=== PATIENT | male | born 1965 | race Caucasian/White ===

== ENCOUNTER 2016-10-13 10:04 | Day surgery (SDC) | payer BC ==
[2016-10-13 10:30] VITALS: BMI 33.5
[2016-10-13] MEDS ORDERED: CLINDAMYCIN 900 MG PREMIX IVPB 50 ML IVPB ONE ×2 (11:27→11:36)
--- NOTE | 2016-10-13 11:35 | PDOC ---
History of Present Illness <Edin Farrell - Last Filed: 10/13/16 11:54> - General History Source: Patient Exam Limitations: No Limitations - History of Present Illness Initial Comments: 10/13/16 11:35 The patient is a 51 year old male, with a significant past medical history of diabetes, who was sent by (to be sent to the OR) and presents to the emergency department with a posterior leaking abscess on the back of his neck for about a week. He states the abscess appeared on tuesday and started leaking tuesday morning. He states starting a prescribed course of medication for the abscess, with no alleviation since then. The patient reports having frequent carbuncles and furuncles secondary to his diabetes, which are usually treated and opened up by . He denies recent fever, chills, headache and dizziness. He also denies recent nausea, vomit, diarrhea and constipation. He hasn't eaten anything since 8am and had water this morning with his morning meds. Allergies: Penicillins Past surgical history: None reported. Social History: Former smoker. PCP: <Aston Mcfarlane - Last Filed: 10/13/16 12:01> - General Chief Complaint: Abscess Boil Stated Complaint: (PCP SENT) ABSCESS ON BACK HEAD, LEAKING Time Seen by Provider: 10/13/16 10:55 Past History - Past Medical History Diabetes: Yes (newly diagnosed) - Psycho/Social/Smoking Cessation Hx Suicidal Ideation: No Smoking History: Former smoker Have you smoked in the past 12 months: Yes If you are a former smoker, when did you quit?: 2016 Information on smoking cessation initiated: No <Edin Farrell - Last Filed: 10/13/16 11:54> <Aston Mcfarlane - Last Filed: 10/13/16 12:01> - Past Medical History Allergies/Adverse Reactions: Allergies Allergy/AdvReac Type Severity Reaction Status Date / Time Penicillins Allergy Unknown Verified 10/13/16 10:23 Home Medications: Ambulatory Orders Sitagliptin Phos/Metformin HCl [Janumet 50-500 mg Tablet] 1 each PO DAILY Sulfamethoxazole/Trimethoprim [Bactrim Ds -] 1 tab PO BID 10/13/16 Review of Systems - Review of Systems Able to Perform ROS?: Yes Comments:: 10/13/16 11:35 GENERAL/CONSTITUTIONAL: No fever or chills. No weakness. HEAD, EYES, EARS, NOSE AND THROAT: No change in vision. No ear pain or discharge. No sore throat. NECK: Yes: abscess. CARDIOVASCULAR: No chest pain or shortness of breath. RESPIRATORY: No cough, wheezing, or hemoptysis. GASTROINTESTINAL: No nausea, vomiting, diarrhea or constipation. GENITOURINARY: No dysuria, frequency, or change in urination. MUSCULOSKELETAL: No joint or muscle swelling or pain. No neck or back pain. SKIN: No rash NEUROLOGIC: No headache, vertigo, loss of consciousness, or change in strength/ sensation. ENDOCRINE: No increased thirst. No abnormal weight change. HEMATOLOGIC/LYMPHATIC: No anemia, easy bleeding, or history of blood clots. ALLERGIC/IMMUNOLOGIC: No hives or skin allergy. <Aston Mcfarlane - Last Filed: 10/13/16 12:01> *Physical Exam - Vital Signs Last Vital Signs Temp Pulse Resp BP Pulse Ox 98.3 F 94 H 16 136/84 97 10/13/16 10:23 10/13/16 10:23 10/13/16 10:23 10/13/16 10:23 10/13/16 10:23 <Edin Farrell - Last Filed: 10/13/16 11:54> - Vital Signs Last Vital Signs Temp Pulse Resp BP Pulse Ox 98.3 F 94 H 16 136/84 97 10/13/16 10:23 10/13/16 10:23 10/13/16 10:23 10/13/16 10:23 10/13/16 10:23 - Physical Exam Comments: 10/13/16 11:35 GENERAL: Awake, alert, and fully oriented, in no acute distress HEAD: No signs of trauma EYES: PERRLA, EOMI, sclera anicteric, conjunctiva clear ENT: Auricles normal inspection, hearing grossly normal, nares patent, oropharynx clear without exudates. Moist mucosa NECK: 10 by 12 cm erythematous base of cellulitis with central opening and draining purulent material no discrete palpable abscess. Supple, no lymphadenopathy,. LUNGS: Breath sounds equal, clear to auscultation bilaterally. No wheezes, and no crackles HEART: Regular rate and rhythm, normal S1 and S2, no murmurs, rubs or gallops ABDOMEN: Soft, nontender, normoactive bowel sounds. No guarding, no rebound. No masses EXTREMITIES: Normal range of motion, no edema. No clubbing or cyanosis. No cords, erythema, or tenderness NEUROLOGICAL: Cranial nerves II through XII grossly intact. Normal speech, normal gait SKIN: Warm, Dry, normal turgor, no rashes or lesions noted. <Aston Mcfarlane - Last Filed: 10/13/16 12:01> Heart Score/ECG Review - ECG Impressions Comment:: 10/13/16 12:00 Vent. rate 89 bpm NJ interval 146 ms QRS duration 96 ms Normal sinus rhythm Normal ECG. <Aston Mcfarlane - Last Filed: 10/13/16 12:01> ED Treatment Course - LABORATORY CBC & Chemistry Diagram: 10/13/16 11:30 10/13/16 11:30 - RADIOLOGY Radiology Studies Ordered: Category Date Time Status CHEST PA & LAT [RAD] Stat Radiology 10/13/16 11:27 Ordered <Edin Farrell - Last Filed: 10/13/16 11:54> - LABORATORY CBC & Chemistry Diagram: 10/13/16 11:30 10/13/16 11:30 <Aston Mcfarlane - Last Filed: 10/13/16 12:01> Medical Decision Making - Medical Decision Making 10/13/16 11:08 Call made to , awaiting call back. 10/13/16 11:21 Call back from s office, case discussed. <Aston Mcfarlane - Last Filed: 10/13/16 12:01> *DC/Admit/Observation/Transfer - Discharge Dispostion Admit: Yes <Edin Farrell - Last Filed: 10/13/16 11:54> - Attestations Scribe Attestion: 10/13/16 11:36 Documentation prepared by Aston Mcfarlane, acting as medical record librarian for Edin Farerll DO. <Aston Mcfarlane - Last Filed: 10/13/16 12:01> Diagnosis at time of Disposition: Abscess or cellulitis, neck - Discharge Dispostion Condition at time of disposition: Unchanged/Unknown - Referrals Referrals: Phil Liu MD [Primary Care Provider] -
[2016-10-13 11:47] LABS: BASOPHIL 0.4 % (0-2.0); EOSINOPHIL 1.2 % (0-4.5); MCH 29.5 pg (25.7-33.7); MCHC 33.9 g/dl (32.0-35.9); MEAN PLT VOLUME 8.2 fl (7.5-11.1); NEUTROPHILS 77.3 % (42.8-82.8); PLATELET COUNT 260 K/MM3 (134-434); RDW 14.2 % (11.9-15.9); WHITE BLOOD COUNT 14.4 K/mm3 (4.0-10.0)
[2016-10-13 12:10] LABS: INR 1.17 (0.82-1.09); PROTHROMBIN TIME (PATIENT) 12.9 SEC (9.98-11.88)
[2016-10-13 12:11] LABS: ALBUMIN 3.6 g/dl (3.4-5.0); ANION GAP 10 (8-16); BILIRUBIN,TOTAL 0.4 mg/dL (0.2-1.0); CALCIUM 9.5 mg/dL (8.5-10.1); CO2 26 mmol/L (21-32); CREATININE 0.9 mg/dL (0.7-1.3); GLUCOSE,RANDOM 282 mg/dL (74-106); SGPT/ALT 32 U/L (12-78); TOT PROT 7.7 g/dl (6.4-8.2)
[2016-10-13 12:14] LABS: ALK PHOS 122 U/L (45-117); SGOT/AST 18 U/L (15-37)
[2016-10-13] MEDS ORDERED: ACETAMINOPHEN 325 MG TABLET (FP) ONE (13:10)
--- NOTE | 2016-10-13 13:37 | EKG ---
Test Reason : Blood Pressure : / mmHG Vent. Rate : 089 BPM Atrial Rate : 089 BPM P-R Int : 146 ms QRS Dur : 096 ms QT Int : 368 ms P-R-T Axes : 039 002 027 degrees QTc Int : 447 ms NORMAL SINUS RHYTHM NORMAL ECG WHEN COMPARED WITH ECG OF 16-AUG-2011 12:13, NO SIGNIFICANT CHANGE WAS FOUND Confirmed by DENISSE ROMO MD ([id number]) on 10/13/2016 1:36:44 PM Referred By: Confirmed By:DENISSE ROMO MD
[2016-10-13] MEDS ORDERED: BUPIVACAINE HCL/PF 0.5% (5MG/ML) 10 ML VIAL ONE (15:30)
[2016-10-13] MEDS ORDERED: LIDOCAINE HCL 1%, 10 MG/ML (20ML VIAL) ONE (15:30)
[2016-10-13] MEDS ORDERED: PROPOFOL 20 ML ONE ×2 (15:32)
[2016-10-13] MEDS ORDERED: MIDAZOLAM HCL 2 MG/2 ML SINGLE DOSE VIAL ONE (15:32)
[2016-10-13] MEDS ORDERED: KETOROLAC TROMETHAMINE 30 MG/1 ML VIAL ONE (16:20)
[2016-10-13] MEDS ORDERED: OXYCODONE/APAP 5/325MG COMBO TABLET PO PRN ×2 (16:30)
--- NOTE | 2016-10-13 16:34 | OP ---
Operative Note - Note: Operative Date: 10/13/16 Pre-Operative Diagnosis: Neck abscess/carbuncle Operation: Incision and drainage, debridement neck carbuncle Findings: Large area of infected subQ in posterior neck. Post-Operative Diagnosis: Same as Pre-op Surgeon: Phil Liu Anesthesiologist/INSULATION BLANKET MAKER: Katiana Cerda Anesthesia: Fractional Estimated Blood Loss (mls): 50
[2016-10-13] MEDS ORDERED: ACETAMINOPHEN 325 MG TABLET (FP) PO PRN ×2 (16:43→16:44)
[2016-10-13] MEDS ORDERED: oxyCODONE HCL 5 MG TABLET PO PRN ×2 (16:43→16:44)
[2016-10-13] MEDS ORDERED: CLINDAMYCIN PHOSPHATE 600 MG/4 ML VIAL ONE (17:13)
[2016-10-13] MEDS ORDERED: VANCOMYCIN 1,000 MG VIAL (RESTRICTED TO ID ONLY) ONE (17:13)
[2016-10-13] MEDS ORDERED: CLINDAMYCIN PHOSPHATE 300 MG/2 ML VIAL ONE (17:13)
[2016-10-13] MEDS: DEXTROSE 5%-0.45% SALINE 1,000 ML IV SCH (18:00)
[2016-10-13] MEDS: CLINDAMYCIN 900 MG PREMIX IVPB 50 ML IVPB SCH (18:30)
--- NOTE | 2016-10-13 18:32 | HP ---
Admitting History and Physical - Admission History of Present Illness: 51 year old male DM with 1 week of neck pain and purulent drainage for several days. He was given Bactrim by his PMD. No fevers. History Source: Patient Limitations to Obtaining History: No Limitations - Past Medical History Endocrine: Yes: Diabetes Mellitus - Smoking History Smoking history: Former smoker Have you smoked in the past 12 months: Yes If you are a former smoker, when did you quit?: 2016 - Alcohol/Substance Use Hx Alcohol Use: No Home Medications - Allergies Allergies/Adverse Reactions: Allergies Allergy/AdvReac Type Severity Reaction Status Date / Time Penicillins Allergy Unknown Verified 10/13/16 10:23 - Home Medications Home Medications: Ambulatory Orders Sitagliptin Phos/Metformin HCl [Janumet 50-500 mg Tablet] 1 each PO DAILY Sulfamethoxazole/Trimethoprim [Bactrim Ds -] 1 tab PO BID 10/13/16 Physical Examination Vital Signs: Vital Signs Temperature 99.0 F 10/13/16 16:32 Pulse Rate 96 H 10/13/16 18:00 Respiratory Rate 20 10/13/16 18:00 Blood Pressure 140/94 10/13/16 18:00 O2 Sat by Pulse Oximetry (%) 96 10/13/16 18:00 Constitutional: Yes: No Distress Eyes: Yes: EOM Intact HENT: Yes: WNL Neck: Yes: Other (Large area of induration and draining sinus tracts in posterior neck. Erythema and fluctuance in the area.) Cardiovascular: Yes: Regular Rate and Rhythm Respiratory: Yes: Regular Gastrointestinal: Yes: Soft Labs: CBC, BMP 10/13/16 11:30 10/13/16 11:30 Problem List - Problems (1) Carbuncle and furuncle of neck Assessment/Plan: Infected skin and subQ. Incision and drainage planned. IV antibiotics. Code(s): L02.12 - FURUNCLE OF NECK L02.13 - CARBUNCLE OF NECK
[2016-10-13] MEDS ORDERED: HYDROmorphone HCL CARPU-JECT 2 MG/1 ML DISP.SYRIN ONE (18:55)
[2016-10-13] MEDS: HYDROmorphone HCL CARPU-JECT 1 MG/1 ML DISP.SYRIN IVPB PRN ×2 (19:00→22:00)
--- NOTE | 2016-10-13 19:41 | CONSULT ---
Consult Consult Specialty:: Infectious Diseases Referred by:: Dr. Phil Liu Reason for Consultation:: Abscess of neck - History of Present Illness Chief Complaint: Cellulitis Abscess of Neck History of Present Illness: He noted gradually increasing redness and swelling of neck over the weekend. Condition progressed and he was seen in the office yesterday. He was started on PO BActrim and referredto Dr. Liu. - History Source History Provided By: Patient Limitations to Obtaining History: No Limitations - Past Medical History Endocrine: Yes: Diabetes Mellitus - Alcohol/Substance Use Hx Alcohol Use: No - Smoking History Smoking history: Former smoker Have you smoked in the past 12 months: Yes If you are a former smoker, when did you quit?: 2016 Home Medications - Allergies Allergies/Adverse Reactions: Allergies Allergy/AdvReac Type Severity Reaction Status Date / Time Penicillins Allergy Unknown Verified 10/13/16 10:23 - Home Medications Home Medications: Ambulatory Orders Sitagliptin Phos/Metformin HCl [Janumet 50-500 mg Tablet] 1 each PO DAILY Sulfamethoxazole/Trimethoprim [Bactrim Ds -] 1 tab PO BID 10/13/16 Family Disease History - Family Disease History Family History: Unable to Obtain Review of Systems - Review of Systems Constitutional: denies: Chills, Fever, Night Sweats HENT: reports: No Symptoms Neck: reports: Tenderness Cardiovascular: denies: No Symptoms Respiratory: denies: No Symptoms Gastrointestinal: denies: No Symptoms Physical Exam Vital Signs: Vital Signs Temperature 99.0 F 10/13/16 16:32 Pulse Rate 97 H 10/13/16 18:45 Respiratory Rate 16 10/13/16 18:45 Blood Pressure 135/97 10/13/16 18:45 O2 Sat by Pulse Oximetry (%) 96 10/13/16 18:45 Constitutional: Yes: Well Nourished Neck: Yes: Other (intact dressing) Respiratory: Yes: CTA Bilaterally Gastrointestinal: Yes: Normal Bowel Sounds Musculoskeletal: Yes: WNL Labs: CBC, BMP 10/13/16 11:30 10/13/16 11:30 Problem List - Problems (1) Abscess or cellulitis, neck Code(s): L03.221 - CELLULITIS OF NECK L02.11 - CUTANEOUS ABSCESS OF NECK (2) Carbuncle and furuncle of neck Code(s): L02.12 - FURUNCLE OF NECK L02.13 - CARBUNCLE OF NECK (3) Diabetes Code(s): E11.9 - TYPE 2 DIABETES MELLITUS WITHOUT COMPLICATIONS Qualifiers: Diabetes mellitus type: type 2 Diabetes mellitus complication status: without complication (4) Penicillin allergy Code(s): Z88.0 - ALLERGY STATUS TO PENICILLIN Assessment/Plan Assess: S/P I&D of neck abscess PCN Allergy DM Continue Home meds Rx Clinda as ordered Vanco If stable may DC in AM on PO Bactrim
[2016-10-13] MEDS ORDERED: VANCOMYCIN 1 GRAM (PRE-DOCKED) 250 ML IVPB ONE (22:00)
[2016-10-14] MEDS: CLINDAMYCIN 900 MG PREMIX IVPB 50 ML IVPB SCH ×2 (01:30→09:31)
[2016-10-14] MEDS: HYDROmorphone HCL CARPU-JECT 1 MG/1 ML DISP.SYRIN IVPB PRN ×2 (01:59→05:50)
[2016-10-14] MEDS: DEXTROSE 5%-0.45% SALINE 1,000 ML IV SCH (05:59)
[2016-10-14] MEDS ORDERED: metFORMIN HCL 500 MG TABLET (FP) PO SCH ×2 (07:00→09:00)
[2016-10-14] MEDS ORDERED: sitaGLIPtin PHOSPHATE 50 MG TABLET PO SCH (07:00)
[2016-10-14] MEDS ORDERED: PT OWN MED DRAWER 7, Y5N ONE (07:22)
[2016-10-14 08:12] LABS: MCH 29.6 pg (25.7-33.7); MCHC 34.1 g/dl (32.0-35.9); MEAN CELL VOLUME 86.9 fl (80-96); MEAN PLT VOLUME 8.1 fl (7.5-11.1); PLATELET COUNT 241 K/MM3 (134-434); RDW 14.1 % (11.9-15.9); WHITE BLOOD COUNT 14.8 K/mm3 (4.0-10.0)
[2016-10-14 08:18] VITALS: TEMP 98.9
[2016-10-14] MEDS ORDERED: VANCOMYCIN 1 GRAM (PRE-DOCKED) 250 ML IVPB SCH (10:00)
--- NOTE | 2016-10-14 13:42 | PN ---
Progress Note (short form) - Note Progress Note: Patient seen prior to discharge. Packing/dressing changed per nursing. Patient is doing well and feels ready for discharge. Last Vital Signs Temp Pulse Resp BP Pulse Ox 98.9 F 89 18 143/91 97 10/14/16 06:00 10/14/16 06:00 10/14/16 06:00 10/14/16 06:00 10/13/16 22:10 CBC, BMP 10/14/16 07:00 10/13/16 11:30 Exam: Gen: NAD Neck: Dressing clean/dry/intact, changed this morning per nursing Problem List - Problems (1) Carbuncle and furuncle of neck Assessment/Plan: POD#1 s/p Incision and drainage, debridement neck carbuncle Patient ready for discharge with instructions, will follow-up with Dr. Liu Rx for Oxycodone and Bactrim were sent to pharmacy Discussed with Dr. Liu Code(s): L02.12 - FURUNCLE OF NECK L02.13 - CARBUNCLE OF NECK
[2016-10-14 13:53] VITALS: BP 140/88; PULSE 84
--- NOTE | 2016-10-14 15:06 | OP ---
DATE OF OPERATION: 10/13/2016 SURGEON: Phil Romo MD PROCEDURE: Incision and drainage with debridement of furuncle of the posterior neck. PREOPERATIVE DIAGNOSIS: Abscess and furuncle of the posterior neck. POSTOPERATIVE DIAGNOSIS: Abscess and furuncle of the posterior neck. ANESTHESIA: Fractional. PARALEGAL ASSISTANT: Katiana Cerda CRNA OPERATIVE FINDINGS: There was a large area of induration with purulent drainage from multiple sinus tracts extending over the posterior aspect of the base of the neck. OPERATIVE PROCEDURE: Following routine patient identification, patient was placed in the lateral decubitus position. Intravenous sedation was established. The skin of the posterior neck was prepped with Betadine solution. Time-out was performed. Xylocaine 1% was infiltrated around the infected area into the subcutaneous tissues. The larger sinus tract was probed with a clamp, and then the skin opened to either side to unroof small abscess. Multiple sinus tracts were seen, and the edges of this incision were excised to remove some of the infected skin and subcutaneous tissues. Soft tissue debridement with scalpel and curette was then performed on the deep tissues and cautery was used for hemostasis. The wound was irrigated with dilute peroxide and dressed with Adaptic and Iodoform gauze packing. Sterile dressing was applied, and the patient was taken to the recovery room in stable condition. PHIL ROMO M.D. JANA/[id number]
--- NOTE | 2016-10-15 12:37 | PATH ---
Surgical Pathology Report Patient Name: MAMIE ERICKSON [facility]. Rec. #: [id number] /Age/Gender: 1965 (Age: 51) / M Account: [id number] Location: AMBULATORY SURG Taken: 10/13/2016 Received: 10/14/2016 Reported: 10/15/2016 Physicians: Phil Liu M.D. Specimen(s) Received DEBRIDEMENT TISSUE NECK ABCESS Clinical History Cellulitis, neck abscess Final Diagnosis SKIN AND SOFT TISSUE, NECK, DEBRIDEMENT: SKIN AND SOFT TISSUE WITH MARKED ACUTE AND CHRONIC INFLAMMATION AND AREAS OF GANGRENOUS NECROSIS. Electronically Signed Phil Hogan M.D. Gross Description Received in formalin labelled "debrided tissue neck abscess" is a 5.5 x 0.8 cm aggregate of portions of skin and attached luque and bennett soft tissue. No indurated areas are identified. Manager Project Management sections are submitted one cassette. [facility]/10/14/2016 [facility]/10/14/2016
== END 2016-10-14 14:23 | disposition home or self-care (01) ==
LOC: JER 10:04 → JASUSAT 12:02 → J6S 20:29 → JASUSAT 10-14 14:23
PROVIDERS: ATTEND Surgery
PROC: 0JB50ZZ Excision of Left Neck Subcutaneous Tissue and Fascia, Open Approach (ICD-10-PCS; 2016-10-13)
PROC: 0J950ZZ Drainage of Left Neck Subcutaneous Tissue and Fascia, Open Approach (ICD-10-PCS; principal; 2016-10-13 15:15)
DX: L02.12 Furuncle of neck (principal); L02.11 Cutaneous abscess of neck
CPT/HCPCS: 36415; 71020-TC; 80053; 85025; 85027; 85610; 87070; 87186; 87205; 88304-TC; 93005; 93010; 94760; 99285-25

== ENCOUNTER 2018-06-19 05:02 | Inpatient (IN) | payer BC ==
[2018-06-19] MEDS ORDERED: MIDAZOLAM HCL 2 MG/2 ML SINGLE DOSE VIAL ONE (07:42)
[2018-06-19] MEDS ORDERED: BUPIVACAINE HCL/PF 0.5% (5MG/ML) 10 ML VIAL ONE (07:43)
[2018-06-19] MEDS ORDERED: SUCCINYLCHOLINE CHLORIDE 200 MG/10 ML VIAL ONE (07:43)
[2018-06-19] MEDS ORDERED: fentaNYL CITRATE 250 MCG/5 ML VIAL ONE (07:43)
[2018-06-19] MEDS ORDERED: PROPOFOL 20 ML ONE (07:43)
[2018-06-19] MEDS ORDERED: ROCURONIUM BROMIDE 50 MG/5 ML VIAL ONE ×2 (07:43→09:09)
[2018-06-19] MEDS ORDERED: TETRACAINE/BENZOCAINE/BUTAMBEN 20 GM SPR TP ONE (08:00)
[2018-06-19] MEDS ORDERED: LIDOCAINE VISCOUS 2% ORAL/TOP 20 ML UNIT-DOSE CUP ONE (08:00)
[2018-06-19] MEDS ORDERED: CLINDAMYCIN PHOSPHATE 600 MG/4 ML VIAL IVPB ONE (08:17)
[2018-06-19] MEDS ORDERED: HEPARIN NA (PORCINE) 5,000 UNITS/ML 1ML VIAL ONE (08:19)
[2018-06-19] MEDS ORDERED: HEPARIN NA (PORCINE) 5,000 UNITS/ML 1ML VIAL SQ ONE (08:20)
[2018-06-19] MEDS ORDERED: LIDOCAINE 1%/EPI 1:100000 (20 ML MULTI DOSE VIAL) IJ ONE ×2 (09:09)
[2018-06-19] MEDS ORDERED: BUPIVACAINE HCL/PF (5 MG/ML) 30 ML VIAL IJ ONE ×2 (09:09)
[2018-06-19] MEDS ORDERED: ePHEDrine SULFATE 50 MG/1 ML AMPULE ONE (09:19)
[2018-06-19] MEDS ORDERED: NEOSTIGMINE METHYLSULFATE 0.5 MG/ML - 10 ML MDV ONE (10:25)
[2018-06-19] MEDS ORDERED: ACETAMINOPHEN 1000 MG/100 ML VIAL (NON FORMULARY) IVPB ONE (10:55)
[2018-06-19] MEDS ORDERED: HYDROmorphone HCl 2 MG/ML VIAL ONE (10:57)
[2018-06-19] MEDS ORDERED: ONDANSETRON 4 MG/2 ML VIAL IVPUSH PRN (10:59)
[2018-06-19] MEDS ORDERED: LACTATED RINGERS SOLUTION 1,000 ML IV SCH (11:00)
[2018-06-19] MEDS: HYDROmorphone HCL CARPU-JECT 2 MG/1 ML DISP.SYRIN IVPUSH PRN ×2 (11:05→12:00)
--- NOTE | 2018-06-19 11:10 | OP ---
Operative Note - Note: Operative Date: 06/19/18 Pre-Operative Diagnosis: ILD Operation: Bronch, right vats, pleural bx, ln bx, lung bx, intercostal nerve block Findings: Bronch: no acute findings in airway but aberrant anatomy (trifurcated TAYLA/LLL divisions and BI divisions) Pleura: nodules on pleura c/w granuloma on frozen, boggy inflamed right lung, ln in level 4 space enlarged also c/w granuloma. Post-Operative Diagnosis: Same as Pre-op Surgeon: Julian Calderon Drum Saw Operator: Live Barrera Anesthesiologist/BOATS RENTER: Yanet Sherwood MD Anesthesia: General Specimens Removed: pleural bx, ln (right paratracheal/level 4), rul wedge. Estimated Blood Loss (mls): 30 Drains & Tubes with Location: chest tube right Operative Report Dictated: Yes
--- NOTE | 2018-06-19 11:44 | SURG ---
Surgery Filler Machine Operator Note Filler Machine Operator: Live Barrera PA-C Date of Service: 06/19/18 Diagnosis: Interstitial lung disease Procedure: Bronchoscopy, right VATs, pleural biopsy, lymph node biospy, lung biopsy, intercostal nerve block I was present for the entirety of the operative procedure. For further detail, please refer to operative report. Visit type - Case Type Case Type: Scheduled - New patient This patient is new to me today: Yes Date on this admission: 06/19/18
[2018-06-19] MEDS: IPRATROPIUM BR 0.02% 0.5 MG/2.5 ML VIAL.NEB. NEB SCH ×3 (13:00→21:00)
[2018-06-19] MEDS ORDERED: morphine CARPU-JECT 4 MG/1 ML DISP.SYRIN IVPUSH PRN (13:05)
--- NOTE | 2018-06-19 13:21 | OPR ---
Patient Name: Rosas Jasmine MR#: [id number] Procedure Date: 06/19/2018; Date of Admission: 06/19/2018; Inpatient Procedure. Preoperative Diagnosis: 1. Interstitial lung disease; 2. Mediastinal adenopathy; 3. Diabetes mellitus; 4. Former smoker; 5. History of abscess drainage. Postoperative Diagnosis: Same Procedure: 1. Flexible Bronchoscopy; 2. Right thoracoscopy, pleural biopsy; 3. Lymph node biopsy; 4. Right upper lobe wedge Indication: Abnormal CXR; Surgeon(s): Julian Calderon MD Cosurgeon: na Optician Apprentice Dispensing Surgeon: SALVADOR Wray Anesthesia: General endotracheal with double-lumen tube; Findings: Bronchoscopy: no lesions; variant of normal bronchial anatomy (bronchus intermedius with three divisions; left bronchus with three divisions. Thoracoscopy: minor adhesions, pleural nodules (non-necrotizing granuloma on frozen); abnormal inflamed and nodular lung. Specimens Sent: 1. Bronchial washings (culture and pathology/cytology); 2. RUL wedge (culture and pathology);; 3. Pleural biopsy; 4. Right paratracheal/level 4 lymph node biopsy (culture and pathology). Complications: none Drains / Tubes / Catheters: na Hardware / Implants: na Blood / Fluid Losses: 30cc Post-Operative Condition: Stable. Indications: This patient is a 52 year-old male former smoker referred from Dr. Castano for lung biopsy. Risks, benefits, and alternatives of a lung biopys were discussed with the patient. All questions were addressed and answered and he agreed to surgery. Details of Procedure: The patient was brought into the operating room. He was placed supine on the table, sedated, and intubated. A boyd catheter was also placed. A bronchoscopy was performed with the above findings and specimens. We then positioned a angelique. Next, he was placed in the left lateral decubitus position. The lung was collapsed and the patient was prepared and draped. We made three VATS incisions and surveyed the pleura. A biopsy was taken. We then biopsied the right level 4 node. Next, we took a sample of the right upper lobe. Next we obtained hemostasis and placed a chest tube. The lung was expanded. All wounds were closed. Sterile dressings were placed. He was awakened and extubated and tolerated the procedure well. I was present for the entire procedure and was available postoperatively to care for him. I will follow him as an inpatient and as an outpatient.
[2018-06-19] MEDS ORDERED: morphine SULFATE 4 MG/ML VIAL ONE (13:38)
--- NOTE | 2018-06-19 14:08 | PN ---
Teaching Attending Note Name of Resident: April Larkin ATTENDING PHYSICIAN STATEMENT I saw and evaluated the patient. I reviewed the resident's note and discussed the case with the resident. I agree with the resident's findings and plan as documented. SUBJECTIVE: Pt seen and examined in the ICU. Briefly, 52 year old male with h/o DM who underwent R VATS for interstitial lung disease. s/p RUL wedge resection/lymph node biopsy/pleural biopsy. Frozen section showing granulomatous disease. Seen post op with chest tube in place with minimal drainage. Denies shortness of breath. OBJECTIVE: Vital Signs Period Temp Pulse Resp BP Sys/Otoole Pulse Ox Last 24 Hr 98.0 F-98.5 F 75-98 16-22 118-144/71-107 93-100 Intake & Output 06/16/18 06/17/18 06/18/18 06/19/18 23:59 23:59 23:59 23:59 Intake Total 2000 Output Total 940 Balance 1060 Gen: NAD at rest Heart: RRR Lung: decreased breath sounds at the bases Abd: soft, nontender Ext: no edema Chest tube: no air leak, minimal drainage Active Medications Acetaminophen (Tylenol Oral Solution -) 650 mg PO Q6H PRN PRN Reason: PAIN OR FEVER Chlorhexidine Gluconate (Hibiclens For Decolonization -) 1 applic TP HS [facility] Docusate Sodium (Colace -) 100 mg PO TID [facility] Heparin Sodium (Porcine) (Heparin -) 5,000 unit SQ BID [facility] Hydromorphone HCl (Dilaudid Injection -) 1 mg IVPUSH [id number] PRN PRN Reason: PAIN-PACU ORDER X 4 DOSES ONLY Last Admin: 06/19/18 12:00 Dose: 1 mg Lactated Ringer's (Lactated Ringers Solution) 1,000 mls @ 125 mls/hr IV ASDIR [place] Ipratropium [place] (Atrovent 0.02% Nebulizer -) 1 amp NEB RQID [facility] Losartan Potassium (Cozaar -) 25 mg PO DAILY [facility] Metformin HCl (Glucophage -) 1,000 mg PO BID@0700,1630 [facility] Morphine Sulfate (Morphine Injection -) 4 mg IVPUSH Q4H PRN PRN Reason: PAIN LEVEL 6-10 Last Admin: 06/19/18 13:40 Dose: 4 mg Mupirocin (Bactroban Ointment (For Decolonization) -) 1 applic NS BID [facility] Stop: 06/24/18 21:59 Ondansetron HCl (Zofran Injection) 4 mg IVPUSH Q6H PRN PRN Reason: NAUSEA AND/OR VOMITING Oxycodone HCl (Roxicodone -) 5 mg PO Q4H PRN PRN Reason: PAIN LEVEL 1-5 Oxycodone HCl (Roxicodone -) 10 mg PO Q4H PRN PRN Reason: PAIN LEVEL 6-10 Senna (Senna -) 2 tab PO [facility] Sitagliptin Phosphate (Januvia -) 50 mg PO BID@0700,1630 [facility] ASSESSMENT AND PLAN: Interstitial Lung Disease likely Sarcoidosis s/p R VATS/RUL wedge resection/LN biopsy/Pleural biopsy DM - pain control - incentive spirometry - keep chest tube to low wall suction - monitor chest tube output - daily CXR while chest tube in place - glucose control - O2 to keep SpO2 >90% - monitor in ICU for now
--- NOTE | 2018-06-19 15:00 | CONSULT ---
Consultation: REQUESTING PROVIDER: Dr Calderon CONSULT REQUEST: We have been asked to medically evaluate this patient for ICU admission. HISTORY OF PRESENT ILLNESS: Rosas Jasmine is a 52yo man with a PMH of DM who was indidentally found to have a R lung lesion on routine chest xray duruing his yearly physical exam. He does report a 15-20 pack year smoking history but quit several years ago. He denies any recent SOB, wheezing, cough, weight change, night sweats, or chest pain. Mr Jasmine presented today for scheduled VATS procedure and underwent uncomplicated bronchoscopy, R VATS, pleural biopsy, lung biopsy (RUL wedge resection) and intercostal block. He was admitted to the ICU for monitoring postoperatively. Currently, Mr Jasmine reports feeling well. REVIEW OF SYSTEMS: General: No fevers, no chills, no weight or appetite change, no malaise HEENT: No changes in vision, no changes in hearing, no congestion, no sore throat CV: No chest pain, no palpitations, no LE edema Pulm: No SOB, no cough, no wheezing GI: No nausea or vomiting, no change in bowel habits, no melena : No frequency, no urgency, no dysuria Musc: No back pain, no joint swelling, no recent injury Skin: No rash, no lesions, no erythema Endo: No excessive thirst, no heat/cold intolerance Heme: No unusual bruising or bleeding, no swollen glands Neuro: No syncope, no numbness/tingling, no focal weakness Vasc: No claudication Psych: No recent change in mood, no SI or HI PHYSICAL EXAMINATION Vital Signs - 24 hr 06/19/18 06/19/18 06/19/18 07:08 10:45 11:00 Temperature 98.3 F 98.0 F Pulse Rate 75 96 H 92 H Respiratory 20 22 H 18 Rate Blood Pressure 132/83 144/107 H 135/89 O2 Sat by Pulse 98 100 97 Oximetry (%) 06/19/18 06/19/18 06/19/18 11:15 11:30 11:45 Temperature Pulse Rate 86 86 87 Respiratory 22 H 18 16 Rate Blood Pressure 135/71 119/75 134/80 O2 Sat by Pulse 97 97 96 Oximetry (%) 06/19/18 06/19/18 06/19/18 11:53 12:00 12:15 Temperature 98.3 F Pulse Rate 83 88 Respiratory 20 20 20 Rate Blood Pressure 122/88 134/80 127/84 O2 Sat by Pulse 97 94 L Oximetry (%) 06/19/18 06/19/18 06/19/18 12:30 12:45 13:00 Temperature Pulse Rate 86 87 86 Respiratory 18 18 18 Rate Blood Pressure 123/75 134/87 128/74 O2 Sat by Pulse 96 95 95 Oximetry (%) 06/19/18 06/19/18 06/19/18 13:15 13:41 13:52 Temperature 98.4 F 98.3 F 98.5 F Pulse Rate 85 98 H 95 H Respiratory 18 20 20 Rate Blood Pressure 118/71 122/88 121/97 O2 Sat by Pulse 93 L 94 L Oximetry (%) 06/19/18 13:53 Temperature 98.5 F Pulse Rate Respiratory 20 Rate Blood Pressure 121/97 O2 Sat by Pulse Oximetry (%) General: Comfortable, no acute distress HEENT: PERRL, EOMI, MMM, voice normal Cards: RRR, no murmur appreciated Pulm: Comfortable on room air, clear to auscultation bilaterally. 2x R lateral chest wall incisions with clean gauze dressings in place. Rt chest tube with sanguinous drainage, occlusive dressing in place. Abd: Soft, nontender, nondistended Ext: Atraumatic. No LE edema. ROM intact. Strength 5/5 and equal bilaterally Vasc: Extremities WWP. Palpable radial and pedal pulses bilaterally Skin: Normal color, no rashes or lesions Neuro: A&Ox3, CN grossly intact, normal speech, motor/sensory grossly intact and symmetric Psych: Mood appropriate to situation Laboratory Results - last 24 hr 06/19/18 06/19/18 06:50 06:58 POC Glucometer 177 Blood Type A POSITIVE Antibody Screen Negative Active Medications Generic Name Dose Route Start Last Admin Trade Name Freq PRN Reason Stop Dose Admin Acetaminophen 650 mg 06/19/18 10:57 Tylenol Oral Solution - PO Q6H PRN PAIN OR FEVER Chlorhexidine Gluconate 1 applic 06/19/18 22:00 Hibiclens For Decolonization - TP HS [facility] Docusate Sodium 100 mg 06/19/18 14:00 Colace - PO TID [facility] Heparin Sodium (Porcine) 5,000 unit 06/20/18 10:00 Heparin - SQ BID [facility] Lactated Ringer's 1,000 mls @ 125 mls/hr 06/19/18 11:00 Lactated Ringers Solution IV ASDIR [facility] Ipratropium [place] 1 amp 06/19/18 12:00 06/19/18 13:00 Atrovent 0.02% Nebulizer - NEB 1 amp RQID [facility] Administration Losartan Potassium 25 mg 06/20/18 10:00 Cozaar - PO DAILY [facility] Metformin HCl 1,000 mg 06/19/18 16:30 Glucophage - PO BID@0700,1630 [facility] Morphine Sulfate 4 mg 06/19/18 14:10 Morphine Sulfate IVPUSH Q4H PRN PAIN LEVEL 6-10 Mupirocin 1 applic 06/19/18 22:00 Bactroban Ointment (For Decolonization) - NS 06/24/18 21:59 BID [facility] Ondansetron HCl 4 mg 06/19/18 10:59 Zofran Injection IVPUSH Q6H PRN NAUSEA AND/OR VOMITING Oxycodone HCl 5 mg 06/19/18 10:47 Roxicodone - PO Q4H PRN PAIN LEVEL 1-5 Oxycodone HCl 10 mg 06/19/18 10:51 Roxicodone - PO Q4H PRN PAIN LEVEL 6-10 Senna 2 tab 06/19/18 22:00 Senna - PO HS [facility] Sitagliptin Phosphate 50 mg 06/19/18 16:30 Januvia - PO BID@0700,1630 [facility] ASSESSMENT/PLAN: Rosas Jasmine is a 52yo man with a PMH of DM and incidentally found right lung lesion who was admitted to the ICU on POD #0 s/p bronchoscopy, R VATS, pleural biopsy, RUL wedge resection. Neuro: - s/p intercostal nerve block - Pain control with PRN oxycodone, acetaminophen - HOB to 45 degrees per surgical team CV: - Home losartan - Cardiac monitoring Pulm: - POD #0 s/p R VATS, pleural bx, RUL bx - Chest tube in place. Monitor output. Strip tubing PRN. Daily CXR ordered per CV team - Atrovent. Duonebs Q6hr - IS 10x per hour Heme: - Monitor hgb and wbc postoperatively - SQH to start tomorrow - Monitor daily CBC GI: - Low sodium diet - Doc/senna. PRN zofran Renal: - Cazares to be d/c'd after 24hr per surgical team ID: - No issues Endo: - h/o DM - Continue home metformin, sitagliptin Musc: - OOB as tolerated - Wound care per CV surgery PPx: - SCDs. SQH tomorrow. - No indication for GI ppx FEN: - Low sodium diet - LR @125 postop - Replete lytes PRN Dispo: - Monitor in ICU Seen and discussed with Dr Umanzor. April Larkin PGY1 Visit type - Emergency Visit Emergency Visit: No - New Patient This patient is new to me today: Yes Date on this admission: 06/19/18 - Critical Care Critical Care patient: Yes Total Critical Care Time (in minutes): 45 Critical Care Statement: The care of this patient involved high complexity decision making to prevent further life threatening deterioration of the patient 's condition and/or to evaluate & treat vital organ system(s) failure or risk of failure.
[2018-06-19] MEDS ORDERED: ACETAMINOPHEN 325 MG TABLET (FP) ONE (15:44)
[2018-06-19] MEDS: DOCUSATE SODIUM 100 MG CAPSULE (FP) PO SCH ×2 (16:11→21:03)
[2018-06-19] MEDS: metFORMIN HCL 500 MG TABLET (FP) PO SCH (18:01)
[2018-06-19] MEDS: sitaGLIPtin PHOSPHATE 50 MG TABLET PO SCH (18:01)
[2018-06-19] MEDS ORDERED: FLU VACCINE QUAD 60 MCG/0.5 ML (MDV 18-19) IM ONE (19:18)
[2018-06-19] MEDS: morphine SULFATE 4 MG/ML VIAL IVPUSH PRN (19:23)
--- NOTE | 2018-06-19 20:22 | PN ---
Progress Note (short form) - Note Progress Note: POD #0 Transferred from PACU to ICU for monitoring. Alert. Resting comfortably with family by bedside. C/o incisional tenderness. Adequate pain control via PRN meds (narcotic and non- narcotic). Denies CP, SOB or KULKARNI. Last Vital Signs Temp Pulse Resp BP Pulse Ox 98.5 F 99 H 20 140/89 94 L 06/19/18 13:53 06/19/18 17:00 06/19/18 17:00 06/19/18 17:00 06/19/18 13:52 General: nad. Chest: Pleurovac on suction (30mL sanguinous), no air leak. : boyd to gravity (300mL/clear) LE: SCDs bilat Problem List - Problems (1) Interstitial lung disease Assessment/Plan: POD #0 s/p Bronchoscopy, right VATs, pleural bx, lymph node bx, lung bx, intercostal nerve block Chest physiotherapy Incentive Spirometer Atrovent neb q6h scheduled Pain management as ordered DVT prophylaxis CBC, BMP in AM (ordered) f/u AM CXR Code(s): J84.9 - INTERSTITIAL PULMONARY DISEASE, UNSPECIFIED
[2018-06-19] MEDS: SENNOSIDES 8.6MG TABLET (FP) PO SCH (21:03)
[2018-06-19] MEDS: oxyCODONE HCL 5 MG TABLET PO PRN (21:59)
[2018-06-19] MEDS: ACETAMINOPHEN 650 MG/20.3 ML ORAL SOLUTION (CUPS) PO PRN (21:59)
[2018-06-19] MEDS ORDERED: PATIENT'S OWN MEDICATION (NON-FORMULARY) (Sitagliptin Phos/Metformin Hcl [Janumet 50-1,000 PO SCH (22:00)
[2018-06-19] MEDS: CHLORHEXIDINE GLUCONATE 4% CLEANSER FOR DECOLONIZATION TP SCH (22:10)
[2018-06-19] MEDS: MUPIROCIN 2% TOPICAL OINTMENT FOR DECOLONIZATION NS SCH (22:11)
[2018-06-19] MEDS: INSULIN SLIDING SCALE (NOVOLOG) 1 VIAL SQ SCH (22:11)
[2018-06-20] MEDS: morphine SULFATE 4 MG/ML VIAL IVPUSH PRN (02:05)
[2018-06-20] MEDS: oxyCODONE HCL 5 MG TABLET PO PRN ×2 (05:06→15:26)
[2018-06-20] MEDS: ACETAMINOPHEN 650 MG/20.3 ML ORAL SOLUTION (CUPS) PO PRN ×2 (05:07→15:25)
[2018-06-20 06:10] LABS: HEMATOCRIT 43.8 % (35.4-49); HEMOGLOBIN 14.9 GM/dL (11.7-16.9); MCH 29.4 pg (25.7-33.7); MCHC 33.9 g/dl (32.0-35.9); MEAN CELL VOLUME 86.7 fl (80-96); MEAN PLT VOLUME 8.1 fl (7.5-11.1); PLATELET COUNT 266 K/MM3 (134-434); RBC 5.04 M/mm3 (4.00-5.60); RDW 13.7 % (11.9-15.9); WHITE BLOOD COUNT 16.2 K/mm3 (4.0-10.0)
[2018-06-20 06:31] LABS: ANION GAP 7 MMOL/L (8-16); BLOOD UREA NITROGEN 14 mg/dL (7-18); CALCIUM 9.2 mg/dL (8.5-10.1); CHLORIDE 94 mmol/L (98-107); CO2 29 mmol/L (21-32); CREATININE 0.9 mg/dL (0.55-1.3); GLUCOSE,RANDOM 146 mg/dL (74-106); MAGNESIUM 1.9 mg/dL (1.8-2.4); POTASSIUM 4.4 mmol/L (3.5-5.1); SODIUM 131 mmol/L (136-145)
[2018-06-20] MEDS ORDERED: HEMOQUE TEST 1 EACH EACH ONE (07:06)
[2018-06-20] MEDS: sitaGLIPtin PHOSPHATE 50 MG TABLET PO SCH ×2 (07:15→18:29)
[2018-06-20] MEDS: metFORMIN HCL 500 MG TABLET (FP) PO SCH ×2 (07:15→18:29)
[2018-06-20] MEDS: INSULIN SLIDING SCALE (NOVOLOG) 1 VIAL SQ SCH ×5 (07:17→21:31)
[2018-06-20] MEDS: DOCUSATE SODIUM 100 MG CAPSULE (FP) PO SCH ×3 (07:19→21:30)
--- NOTE | 2018-06-20 07:25 | PN ---
Progress Note (short form) - Note Progress Note: POD #1 Alert. Sitting in chair at bedside. No acute events since surgery per RN notes. Patient had hard time sleeping. C/o incisional tenderness. Adequate pain control with meds ordered. Only got oob to stand and sit in chair. Using his incentive spirometer as directed. Denies n/v/f/c, CP, SOB, KULKARNI, hoarseness or dysphagia. Last Vital Signs Temp Pulse Resp BP Pulse Ox 99.2 F 101 H 21 H 127/84 98 06/20/18 02:00 06/20/18 04:00 06/20/18 04:00 06/20/18 04:00 06/19/18 23:40 CBC, BMP 06/20/18 05:30 06/20/18 05:30 Microbiology 06/19/18 08:50 Bronchial Washings - Right Upper Lobe Gram Stain - Final 06/19/18 09:50 Lung - Right Upper Lobe Gram Stain - Final 06/19/18 08:50 Bronchial Washings - Right Upper Lobe TOMAS Preparation - Preliminary 06/19/18 08:50 Bronchial Washings - Right Upper Lobe Fungal Culture - Preliminary 18 09:50 Lung - Right Upper Lobe TOMAS Preparation - Preliminary 18 09:50 Lung - Right Upper Lobe Fungal Culture - Preliminary 06/19/18 08:50 Bronchial Washings - Right Upper Lobe AFB Smear Concentration - Preliminary 06/19/18 08:50 Bronchial Washings - Right Upper Lobe Mycobacterial Culture - Preliminary PE Gen: alert. nad. Cx: Right chest tube remains on suction/pleurovac. No air leak. No tidiling. 100mL (sanguinous over night, 130mL total since surgery). Dressings c/d/i. No hematoma. : boyd > 30mL/hr LE: SCDs bilat. Soft. NT. Problem List - Problems (1) Interstitial lung disease Assessment/Plan: POD #1 s/p Bronchoscopy, right VATs, pleural bx, lymph node bx, lung bx, intercostal nerve block under general anesthesia without complications. Chest physiotherapy Incentive Spirometer Atrovent neb q6h scheduled Pain management as ordered DVT prophylaxis DC boyd and begin trial of void Pleurovac placed to waterseal Tordol 30mg IV Q8H prn f/u AM CXR Code(s): J84.9 - INTERSTITIAL PULMONARY DISEASE, UNSPECIFIED
[2018-06-20] MEDS: IPRATROPIUM BR 0.02% 0.5 MG/2.5 ML VIAL.NEB. NEB SCH ×4 (08:30→21:00)
[2018-06-20] MEDS: HEPARIN NA (PORCINE) 5,000 UNITS/ML 1ML VIAL SQ SCH ×2 (09:47→21:31)
[2018-06-20] MEDS: KETOROLAC TROMETHAMINE 30 MG/1 ML VIAL IVPUSH SCH ×2 (09:48→18:29)
[2018-06-20] MEDS: MUPIROCIN 2% TOPICAL OINTMENT FOR DECOLONIZATION NS SCH ×2 (09:49→21:30)
[2018-06-20] MEDS: LOSARTAN POTASSIUM 25 MG TABLET PO SCH (09:49)
[2018-06-20] MEDS ORDERED: INSULIN (NOVOLOG) ASPART 100 UNITS/ML 10ML VIAL ONE ×2 (09:57→22:16)
--- NOTE | 2018-06-20 10:13 | PN ---
Physical Exam: SUBJECTIVE: - POD #1 s/p R VATS, bronchoscopy, pleural biopsy, RUL wedge resection - Reports difficulty sleeping due to discomfort from the chest tube. Currently 8 /[address] site. Otherwise feeling well. Tolerating diet, OOB without difficulty. OBJECTIVE: Vital Signs Period Temp Pulse Resp BP Sys/Otoole Pulse Ox Last 24 Hr 98.0 F-99.2 F 83-112 16-22 113-145/71-107 93-100 General: Comfortable, no acute distress HEENT: PERRL, EOMI, MMM, voice normal Cards: RRR, no murmur appreciated Pulm: Comfortable on room air, clear to auscultation bilaterally. 2x R lateral chest wall incisions with clean gauze dressings in place. Rt chest tube with SS drainage, dressing with some serous drainage staining gauze. Abd: Soft, nontender, nondistended Ext: WWP, strength equal bilaterally Neuro: A&Ox3, CN grossly intact, normal speech, motor/sensory grossly intact and symmetric Psych: Mood appropriate to situation Laboratory Results - last 24 hr 06/19/18 06/19/18 06/20/18 17:58 22:08 05:30 WBC 16.2 H RBC 5.04 Hgb 14.9 Hct 43.8 MCV 86.7 MCH 29.4 MCHC 33.9 RDW 13.7 Plt Count 266 MPV 8.1 Sodium Potassium Chloride Carbon Dioxide Anion Gap BUN Creatinine Creat Clearance w eGFR POC Glucometer [phone] Random Glucose Calcium Phosphorus Magnesium 06/20/18 06/20/18 05:30 06:55 WBC RBC Hgb Hct MCV MCH MCHC RDW Plt Count MPV Sodium 131 L Potassium 4.4 Chloride 94 L Carbon Dioxide 29 Anion Gap 7 L BUN 14 Creatinine 0.9 Creat Clearance w eGFR > 60 POC Glucometer [phone] Random Glucose 146 H Calcium 9.2 Phosphorus 4.0 Magnesium 1.9 Active Medications Generic Name Dose Route Start Last Admin Trade Name Freq PRN Reason Stop Dose Admin Acetaminophen 650 mg 06/19/18 10:57 06/20/18 05:07 Tylenol Oral Solution - PO 650 mg Q6H PRN Administration PAIN OR FEVER Chlorhexidine Gluconate 1 applic 06/19/18 22:00 06/19/18 22:10 Hibiclens For Decolonization - TP 1 applic HS [facility] Administration Docusate Sodium 100 mg 06/19/18 14:00 06/20/18 07:19 Colace - PO 100 mg TID [facility] Administration Heparin Sodium (Porcine) 5,000 unit 06/20/18 10:00 06/20/18 09:47 Heparin - SQ 5,000 unit BID [facility] Administration Lactated Ringer's 1,000 mls @ 125 mls/hr 06/19/18 11:00 06/19/18 19:00 Lactated Ringers Solution IV 125 mls/hr ASDIR [facility] Administration Insulin Aspart 1 vial 06/19/18 22:00 06/20/18 07:31 Novolog Vial Sliding Scale - SQ Not Given ACHS [facility] Protocol Ipratropium [place] 1 amp 06/19/18 12:00 06/20/18 08:30 Atrovent 0.02% Nebulizer - NEB 1 amp RQID [facility] Administration Ketorolac Tromethamine 30 mg 06/20/18 10:00 06/20/18 09:48 Toradol Injection - IVPUSH 06/25/18 09:59 30 mg Q8H-IV [facility] Administration Losartan Potassium 25 mg 06/20/18 10:00 06/20/18 09:49 Cozaar - PO 25 mg DAILY [facility] Administration Metformin HCl 1,000 mg 06/19/18 16:30 06/20/18 07:15 Glucophage - PO 1,000 mg BID@0700,1630 [facility] Administration Morphine Sulfate 4 mg 06/19/18 14:10 06/20/18 02:05 Morphine Sulfate IVPUSH 4 mg Q4H PRN Administration PAIN LEVEL 6-10 Mupirocin 1 applic 06/19/18 22:00 06/20/18 09:49 Bactroban Ointment (For Decolonization) - NS 06/24/18 21:59 1 applic BID [facility] Administration Ondansetron HCl 4 mg 06/19/18 10:59 Zofran Injection IVPUSH Q6H PRN NAUSEA AND/OR VOMITING Oxycodone HCl 5 mg 06/19/18 10:47 06/19/18 21:59 Roxicodone - PO 5 mg Q4H PRN Administration PAIN LEVEL 1-5 Oxycodone HCl 10 mg 06/19/18 10:51 06/20/18 05:06 Roxicodone - PO 10 mg Q4H PRN Administration PAIN LEVEL 6-10 Senna 2 tab 06/19/18 22:00 06/19/18 21:03 Senna - PO 2 tab HS [facility] Administration Sitagliptin Phosphate 50 mg 06/19/18 16:30 06/20/18 07:15 Januvia - PO 50 mg BID@0700,1630 [facility] Administration ASSESSMENT/PLAN: Rosas Jasmine is a 52yo man with a PMH of DM and incidentally found right lung lesion who was admitted to the ICU on POD #0 s/p bronchoscopy, R VATS, pleural biopsy, RUL wedge resection. He is now POD #1 and recovering well postoperatively. Neuro: - s/p intercostal nerve block - Pain control with scheduled toradol, PRN morphine, oxycodone, acetaminophen - HOB to 45 degrees per surgical team CV: - Home losartan - Borderline tachycardia and hypertension; may be secondary to pain - Cardiac monitoring Pulm: - POD #1 s/p R VATS, pleural bx, RUL bx - Chest tube to water seal. Serosanguinous drainage, 270cc total output. Strip tubing PRN. - Daily CXR ordered per CV team - Atrovent. Duonebs Q6hr - IS 10x per hour Heme: - Postoperative leukocytosis. Hgb stable. - Start SQH today - Monitor daily CBC GI: - Low sodium diet - Doc/senna. PRN zofran Renal: - DC boyd - f/u void trial - UOP appropraite ID: - No issues Endo: - h/o DM - Continue home metformin, sitagliptin - ISS added this morning Musc: - OOB as tolerated - Wound care per CV surgery PPx: - SCDs. SQH tomorrow. - No indication for GI ppx FEN: - Low sodium diet - SLIV - Replete lytes PRN Dispo: - Monitor in ICU pending OK from CV surgery to transfer Seen and discussed with Dr Umanzor. April Larkin PGY1 Visit type - Emergency Visit Emergency Visit: No - New Patient This patient is new to me today: No - Critical Care Critical Care patient: Yes Total Critical Care Time (in minutes): 45 Critical Care Statement: The care of this patient involved high complexity decision making to prevent further life threatening deterioration of the patient 's condition and/or to evaluate & treat vital organ system(s) failure or risk of failure.
--- NOTE | 2018-06-20 10:33 | PN ---
Progress Note (short form) - Note Progress Note: Anesthesia postop note 52 y/o M s/p GA for bronchoscopy, vats, wedge resection, pleural and lymph node biopsy POD#1, vss, aaox3, some chest discomfort No anesthesia complications.
--- NOTE | 2018-06-20 12:29 | PN ---
Teaching Attending Note Name of Resident: April Larkin ATTENDING PHYSICIAN STATEMENT I saw and evaluated the patient. I reviewed the resident's note and discussed the case with the resident. I agree with the resident's findings and plan as documented. SUBJECTIVE: Pt seen and examined in the ICU. Pain controlled with current regimen. Denies shortness of breath. No fevers or chills. OBJECTIVE: Vital Signs Period Temp Pulse Resp BP Sys/Otoole Pulse Ox Last 24 Hr 98.3 F-99.2 F 85-112 18-28 113-145/61-97 93-98 Intake & Output 06/17/18 06/18/18 06/19/18 06/20/18 23:59 23:59 23:59 23:59 Intake Total 2200 1500 Output Total 1240 2600 Balance 960 -1100 Gen: NAD in chair Heart: RRR Lung: decreased breath sounds at the bases Abd: soft, nontender Ext: no edema Chest tube: minimal drainage, no air leak CBC, BMP 06/20/18 05:30 06/20/18 05:30 Active Medications Acetaminophen (Tylenol Oral Solution -) 650 mg PO Q6H PRN PRN Reason: PAIN OR FEVER Last Admin: 06/20/18 05:07 Dose: 650 mg Chlorhexidine Gluconate (Hibiclens For Decolonization -) 1 applic TP HS [facility] Last Admin: 06/19/18 22:10 Dose: 1 applic Docusate Sodium (Colace -) 100 mg PO TID [facility] Last Admin: 06/20/18 07:19 Dose: 100 mg Heparin Sodium (Porcine) (Heparin -) 5,000 unit SQ BID [facility] Last Admin: 06/20/18 09:47 Dose: 5,000 unit Lactated Ringer's (Lactated Ringers Solution) 1,000 mls @ 125 mls/hr IV ASDIR [facility] Last Admin: 06/19/18 19:00 Dose: 125 mls/hr Insulin Aspart (Novolog Vial Sliding Scale -) 1 vial SQ ACHS [facility]; Protocol Last Admin: 06/20/18 12:25 Dose: Not Given Ipratropium [place] (Atrovent 0.02% Nebulizer -) 1 amp NEB RQID [facility] Last Admin: 06/20/18 12:11 Dose: 1 amp Ketorolac Tromethamine (Toradol Injection -) 30 mg IVPUSH Q8H-IV [facility] Stop: 06/25/18 09:59 Last Admin: 06/20/18 09:48 Dose: 30 mg Losartan Potassium (Cozaar -) 25 mg PO DAILY [facility] Last Admin: 06/20/18 09:49 Dose: 25 mg Metformin HCl (Glucophage -) 1,000 mg PO BID@0700,1630 [facility] Last Admin: 06/20/18 07:15 Dose: 1,000 mg Morphine Sulfate (Morphine Sulfate) 4 mg IVPUSH Q4H PRN PRN Reason: PAIN LEVEL 6-10 Last Admin: 06/20/18 02:05 Dose: 4 mg Mupirocin (Bactroban Ointment (For Decolonization) -) 1 applic NS BID [facility] Stop: 06/24/18 21:59 Last Admin: 06/20/18 09:49 Dose: 1 applic Ondansetron HCl (Zofran Injection) 4 mg IVPUSH Q6H PRN PRN Reason: NAUSEA AND/OR VOMITING Oxycodone HCl (Roxicodone -) 5 mg PO Q4H PRN PRN Reason: PAIN LEVEL 1-5 Last Admin: 06/19/18 21:59 Dose: 5 mg Oxycodone HCl (Roxicodone -) 10 mg PO Q4H PRN PRN Reason: PAIN LEVEL 6-10 Last Admin: 06/20/18 05:06 Dose: 10 mg Senna (Senna -) 2 tab PO HS [facility] Last Admin: 06/19/18 21:03 Dose: 2 tab Sitagliptin Phosphate (Januvia -) 50 mg PO BID@0700,1630 [facility] Last Admin: 06/20/18 07:15 Dose: 50 mg ASSESSMENT AND PLAN: Interstitial Lung Disease likely Sarcoidosis s/p R VATS/RUL wedge resection/LN biopsy/Pleural biopsy DM - f/u pathology - pain control - incentive spirometry - chest tube per surgery - monitor chest tube output - daily CXR while chest tube in place - glucose control - O2 to keep SpO2 >90% - DVT prophylaxis - disposition per surgery
[2018-06-20] MEDS ORDERED: PT OWN MED DRAWER 7, Y5N ONE (13:36)
[2018-06-20] MEDS ORDERED: LIDOCAINE 5% TOPICAL PATCH TP PRN (18:29)
[2018-06-20] MEDS: SENNOSIDES 8.6MG TABLET (FP) PO SCH (21:31)
[2018-06-20] MEDS: CHLORHEXIDINE GLUCONATE 4% CLEANSER FOR DECOLONIZATION TP SCH (21:31)
[2018-06-20] MEDS: LIDOCAINE PATCH REMOVAL MC SCH (21:32)
[2018-06-21] MEDS: KETOROLAC TROMETHAMINE 30 MG/1 ML VIAL IVPUSH SCH ×3 (01:00→18:07)
[2018-06-21] MEDS: sitaGLIPtin PHOSPHATE 50 MG TABLET PO SCH ×2 (06:04→18:06)
[2018-06-21] MEDS: DOCUSATE SODIUM 100 MG CAPSULE (FP) PO SCH ×3 (06:04→21:57)
[2018-06-21] MEDS: metFORMIN HCL 500 MG TABLET (FP) PO SCH ×2 (06:04→18:06)
[2018-06-21] MEDS: INSULIN SLIDING SCALE (NOVOLOG) 1 VIAL SQ SCH ×4 (06:04→22:15)
[2018-06-21] MEDS: oxyCODONE HCL 5 MG TABLET PO PRN ×3 (07:44→21:57)
[2018-06-21] MEDS: ACETAMINOPHEN 650 MG/20.3 ML ORAL SOLUTION (CUPS) PO PRN ×3 (07:44→21:56)
[2018-06-21] MEDS: IPRATROPIUM BR 0.02% 0.5 MG/2.5 ML VIAL.NEB. NEB SCH ×4 (08:46→21:30)
--- NOTE | 2018-06-21 09:08 | PN ---
Progress Note (short form) - Note Progress Note: POD#2 Pt without any complaints of SOB/CP. Oob and ambulated yesterday and voided after boyd cath removal. Had a bm yesterday, he desaturated to the low 80's when the pulse ox was removed. Vital Signs Period Temp Pulse Resp BP Sys/Otoole Pulse Ox Last 24 Hr 98.2 F-99.5 F 85-105 14-28 111-140/61-112 95-[address]-80 ml serosangrneous GEN: Appears comfortable Cv: RR, mild tachycardia(low 100's) Lungs: CTA b/l anteriorly. dressing c/d/i. No SQ emphysema. Right CT tidling well. CT removed today after cxr reviewed. Applied xeroform/4x4 gauze and tegaderm dressing. CBC, BMP 10/16/18 05:30 10/16/18 05:30 A/p: 52 yo male s/p Right Vats, POD#[address] Calderon and the CT was removed today Ordered f/u CXR for 11am Continue all CT dressings. Do not remove them for 72 hours. Pain medications as needed and stool softners Check pre-op saturation with ambulation/RT
[2018-06-21] MEDS ORDERED: PT OWN MED DRAWER 7, Y5N ONE (11:15)
--- NOTE | 2018-06-21 11:34 | PN ---
Teaching Attending Note Name of Resident: April Larkin ATTENDING PHYSICIAN STATEMENT I saw and evaluated the patient. I reviewed the resident's note and discussed the case with the resident. I agree with the resident's findings and plan as documented. SUBJECTIVE: Pt seen and examined in the ICU. Chest tube removed this AM. Denies shortness of breath or chest pain. No fevers or chills. OBJECTIVE: Vital Signs Period Temp Pulse Resp BP Sys/Otoole Pulse Ox Last 24 Hr 98.2 F-99.5 F 85-108 14-25 111-132/61-112 95 Intake & Output 06/18/18 06/19/18 06/20/18 06/21/18 23:59 23:59 23:59 23:59 Intake Total 2200 2550 200 Output Total 1240 3000 530 Balance 960 -450 -330 Weight 87.742 kg Gen: NAD in chair Heart: RRR Lung: decreased breath sounds at the bases Abd: soft, nontender Ext: no edema CBC, BMP 06/20/18 05:30 06/20/18 05:30 Active Medications Acetaminophen (Tylenol Oral Solution -) 650 mg PO Q6H PRN PRN Reason: PAIN OR FEVER Last Admin: 06/21/18 07:44 Dose: 650 mg Chlorhexidine Gluconate (Hibiclens For Decolonization -) 1 applic TP HS [facility] Last Admin: 06/20/18 21:31 Dose: 1 applic Docusate Sodium (Colace -) 100 mg PO TID [facility] Last Admin: 06/21/18 06:04 Dose: 100 mg Heparin Sodium (Porcine) (Heparin -) 5,000 unit SQ BID [facility] Last Admin: 06/20/18 21:31 Dose: 5,000 unit Insulin Aspart (Novolog Vial Sliding Scale -) 1 vial SQ ACHS [facility]; Protocol Last Admin: 06/21/18 06:04 Dose: Not Given Ipratropium [place] (Atrovent 0.02% Nebulizer -) 1 amp NEB RQID [facility] Last Admin: 06/21/18 08:46 Dose: 1 amp Ketorolac Tromethamine (Toradol Injection -) 30 mg IVPUSH Q8H-IV [facility] Stop: 06/25/18 09:59 Last Admin: 06/21/18 01:00 Dose: 30 mg Lidocaine (Lidoderm Patch -) 1 patch TP HS PRN PRN Reason: PAIN Losartan Potassium (Cozaar -) 25 mg PO DAILY [facility] Last Admin: 06/20/18 09:49 Dose: 25 mg Metformin HCl (Glucophage -) 1,000 mg PO BID@0700,1630 [facility] Last Admin: 06/21/18 06:04 Dose: 1,000 mg Miscellaneous (Lidoderm Patch Removal) 1 each MC DAILY@2200 [facility] Last Admin: 06/20/18 21:32 Dose: Not Given Morphine Sulfate (Morphine Sulfate) 4 mg IVPUSH Q4H PRN PRN Reason: PAIN LEVEL 6-10 Last Admin: 06/20/18 02:05 Dose: 4 mg Mupirocin (Bactroban Ointment (For Decolonization) -) 1 applic NS BID [facility] Stop: 06/24/18 21:59 Last Admin: 06/20/18 21:30 Dose: 1 applic Ondansetron HCl (Zofran Injection) 4 mg IVPUSH Q6H PRN PRN Reason: NAUSEA AND/OR VOMITING Oxycodone HCl (Roxicodone -) 5 mg PO Q4H PRN PRN Reason: PAIN LEVEL 1-5 Last Admin: 06/19/18 21:59 Dose: 5 mg Oxycodone HCl (Roxicodone -) 10 mg PO Q4H PRN PRN Reason: PAIN LEVEL 6-10 Last Admin: 06/21/18 07:44 Dose: 10 mg Senna (Senna -) 2 tab PO HS [facility] Last Admin: 06/20/18 21:31 Dose: 2 tab Sitagliptin Phosphate (Januvia -) 50 mg PO BID@0700,1630 [facility] Last Admin: 06/21/18 06:04 Dose: 50 mg ASSESSMENT AND PLAN: Interstitial Lung Disease likely Sarcoidosis s/p R VATS/RUL wedge resection/LN biopsy/Pleural biopsy DM - f/u repeat CXR - f/u pathology - pain control - incentive spirometry - glucose control - O2 to keep SpO2 >90% - DVT prophylaxis - disposition per surgery - can d/c home with outpt f/u from pulmonary standpoint if repeat CXR unremarkable
[2018-06-21] MEDS: HEPARIN NA (PORCINE) 5,000 UNITS/ML 1ML VIAL SQ SCH ×2 (11:57→21:56)
[2018-06-21] MEDS: MUPIROCIN 2% TOPICAL OINTMENT FOR DECOLONIZATION NS SCH ×2 (11:59→22:16)
[2018-06-21] MEDS: LOSARTAN POTASSIUM 25 MG TABLET PO SCH (11:59)
[2018-06-21 12:01] VITALS: BMI 31.1
--- NOTE | 2018-06-21 12:20 | PN ---
Progress Note (short form) - Note Progress Note: POD#2 Ambulating. Pain controlled with oxycodone and toradol. CT removed today. Lung expanded. VSS D/C tomorrow with pain meds and f/u in 2 weeks.
--- NOTE | 2018-06-21 14:36 | PN ---
Physical Exam: SUBJECTIVE: - Pain well controlled, tolerating diet. - Chest tube removed this morning. F/U xray without acute changes - Per pt's , concern for desatting (Not observed by team) OBJECTIVE: Vital Signs Period Temp Pulse Resp BP Sys/Otoole Pulse Ox Last 24 Hr 98.2 F-99.4 F 80-108 14-25 108-132/61-112 92-95 General: Comfortable, no acute distress HEENT: PERRL, EOMI, MMM, voice normal Cards: RRR, no murmur appreciated Pulm: Comfortable on room air, clear to auscultation bilaterally. Right chest wounds with clean dressings, appropriately TTP. Abd: Soft, nontender, nondistended Ext: WWP, strength equal bilaterally Neuro: A&Ox3, CN grossly intact, normal speech, motor/sensory grossly intact and symmetric Psych: Mood appropriate to situation Laboratory Results - last 24 hr 06/20/18 06/21/18 06/21/18 21:25 05:24 11:46 POC Glucometer [phone] 159.08068 Active Medications Generic Name Dose Route Start Last Admin Trade Name Freq PRN Reason Stop Dose Admin Acetaminophen 650 mg 06/19/18 10:57 06/21/18 07:44 Tylenol Oral Solution - PO 650 mg Q6H PRN Administration PAIN OR FEVER Chlorhexidine Gluconate 1 applic 06/19/18 22:00 06/20/18 21:31 Hibiclens For Decolonization - TP 1 applic HS [facility] Administration Docusate Sodium 100 mg 06/19/18 14:00 06/21/18 06:04 Colace - PO 100 mg TID [facility] Administration Heparin Sodium (Porcine) 5,000 unit 06/20/18 10:00 06/21/18 11:57 Heparin - SQ 5,000 unit BID [facility] Administration Insulin Aspart 1 vial 06/19/18 22:00 06/21/18 12:00 Novolog Vial Sliding Scale - SQ Not Given ACHS [facility] Protocol Ipratropium [place] 1 amp 06/19/18 12:00 06/21/18 11:47 Atrovent 0.02% Nebulizer - NEB 1 amp RQID [facility] Administration Ketorolac Tromethamine 30 mg 06/20/18 10:00 06/21/18 12:00 Toradol Injection - IVPUSH 06/25/18 09:59 30 mg Q8H-IV [facility] Administration Lidocaine 1 patch 06/20/18 18:29 Lidoderm Patch - TP HS PRN PAIN Losartan Potassium 25 mg 06/20/18 10:00 06/21/18 11:59 Cozaar - PO 25 mg DAILY [facility] Administration Metformin HCl 1,000 mg 06/19/18 16:30 06/21/18 06:04 Glucophage - PO 1,000 mg BID@0700,1630 [facility] Administration Miscellaneous 1 each 06/20/18 22:00 06/20/18 21:32 Lidoderm Patch Removal MC Not Given DAILY@2200 [facility] Morphine Sulfate 4 mg 06/19/18 14:10 06/20/18 02:05 Morphine Sulfate IVPUSH 4 mg Q4H PRN Administration PAIN LEVEL 6-10 Mupirocin 1 applic 06/19/18 22:00 06/21/18 11:59 Bactroban Ointment (For Decolonization) - NS 06/24/18 21:59 1 applic BID [facility] Administration Ondansetron HCl 4 mg 06/19/18 10:59 Zofran Injection IVPUSH Q6H PRN NAUSEA AND/OR VOMITING Oxycodone HCl 5 mg 06/19/18 10:47 06/19/18 21:59 Roxicodone - PO 5 mg Q4H PRN Administration PAIN LEVEL 1-5 Oxycodone HCl 10 mg 06/19/18 10:51 06/21/18 07:44 Roxicodone - PO 10 mg Q4H PRN Administration PAIN LEVEL 6-10 Senna 2 tab 06/19/18 22:00 06/20/18 21:31 Senna - PO 2 tab HS [facility] Administration Sitagliptin Phosphate 50 mg 06/19/18 16:30 06/21/18 06:04 Januvia - PO 50 mg BID@0700,1630 [facility] Administration ASSESSMENT/PLAN: Rosas Jasmine is a 52yo man with a PMH of DM and incidentally found right lung lesion who was admitted to the ICU s/p bronchoscopy, R VATS, pleural biopsy, RUL wedge resection. He is now POD #2 and recovering well postoperatively. Neuro: - s/p intercostal nerve block in OR - Pain control with scheduled toradol, PRN morphine, oxycodone, acetaminophen - HOB to 45 degrees per surgical team CV: - Home losartan - Borderline tachycardia and hypertension yesterday now resolved - Cardiac monitoring Pulm: - POD #2 s/p R VATS, pleural bx, RUL bx - Chest tube removed this morning. f/u CXR w/o acute changes - Atrovent. Duonebs Q6hr - IS 10x per hour - Concern for desats per patient's . Desat screen while ambulating ordered. Heme: - Postoperative leukocytosis. Hgb stable. - SQH GI: - Low sodium diet - Doc/senna. PRN zofran Renal: - Voiding spontaneously - UOP appropraite ID: - No issues Endo: - h/o DM - Continue home metformin, sitagliptin, ISS Musc: - OOB as tolerated - Wound care per CT surgery PPx: - SCDs, SQH - No indication for GI ppx FEN: - Low sodium diet - SLIV - Replete lytes PRN Dispo: - Stable in ICU. If able to ambulate without desatting, will transfer to floor. Seen and discussed with Dr Umanzor. April Larkin PGY1 Visit type - Emergency Visit Emergency Visit: No - New Patient This patient is new to me today: No - Critical Care Critical Care patient: Yes Total Critical Care Time (in minutes): 45 Critical Care Statement: The care of this patient involved high complexity decision making to prevent further life threatening deterioration of the patient 's condition and/or to evaluate & treat vital organ system(s) failure or risk of failure.
--- NOTE | 2018-06-21 17:24 | PATH ---
Cytology Non-Gynecological Report Patient Name: MAMIE ERICKSON [facility]. Rec. 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 Specimen(s) Received BRONCHIAL WASHINGS Clinical History Interstitial pulmonary disease Final Diagnosis RIGHT LUNG, BRONCHIAL WASHINGS: SATISFACTORY FOR EVALUATION. NO MALIGNANT CELLS IDENTIFIED. REACTIVE BRONCHIAL CELLS AND ALVEOLAR MACROPHAGES, SOME NEUTROPHILS, AND LYMPHOCYTES PRESENT. Electronically Signed Adelaide Denney M.D. Gross Description Approximately 10cc of clear fluid received fresh. One ofslide prepared.
--- NOTE | 2018-06-21 17:25 | PATH ---
Cytology Non-Gynecological Report Patient Name: MAMIE ERICKSON [facility]. Rec. 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 Specimen(s) Received PLEURAL FLUID Clinical History Interstitial pulmonary disease Final Diagnosis PLEURAL FLUID FOR CYTOLOGY: SATISFACTORY FOR EVALUATION. NO MALIGNANT CELLS IDENTIFIED. REACTIVE MESOTHELIAL CELLS, MACROPHAGES, NEUTROPHILS, AND LYMPHOCYTES PRESENT, IN A BLOODY BACKGROUND. Electronically Signed Adelaide Denney M.D. Gross Description Approximately 0.5cc of bloody fluid received fresh. One slide and one cell block prepared.
[2018-06-21] MEDS: CHLORHEXIDINE GLUCONATE 4% CLEANSER FOR DECOLONIZATION TP SCH (21:58)
[2018-06-21] MEDS: SENNOSIDES 8.6MG TABLET (FP) PO SCH (22:00)
[2018-06-21] MEDS: LIDOCAINE PATCH REMOVAL MC SCH (22:17)
[2018-06-22] MEDS: KETOROLAC TROMETHAMINE 30 MG/1 ML VIAL IVPUSH SCH ×2 (02:30→09:24)
[2018-06-22] MEDS: sitaGLIPtin PHOSPHATE 50 MG TABLET PO SCH (06:50)
[2018-06-22] MEDS: metFORMIN HCL 500 MG TABLET (FP) PO SCH (06:50)
[2018-06-22] MEDS: DOCUSATE SODIUM 100 MG CAPSULE (FP) PO SCH (06:52)
[2018-06-22] MEDS: INSULIN SLIDING SCALE (NOVOLOG) 1 VIAL SQ SCH (06:52)
[2018-06-22 07:17] LABS: HEMATOCRIT 40.8 % (35.4-49); HEMOGLOBIN 13.5 GM/dL (11.7-16.9); MEAN CELL VOLUME 87.8 fl (80-96); MEAN PLT VOLUME 8.3 fl (7.5-11.1); PLATELET COUNT 225 K/MM3 (134-434); RBC 4.65 M/mm3 (4.00-5.60); RDW 13.8 % (11.9-15.9); WHITE BLOOD COUNT 6.6 K/mm3 (4.0-10.0)
--- NOTE | 2018-06-22 08:27 | PN ---
Physical Exam: SUBJECTIVE: - Desats to 89% while ambulating yesterday, kept in ICU for monitoring - No events overnight - Reports feeling well this morning, no complaints OBJECTIVE: Vital Signs Period Temp Pulse Resp BP Sys/Otoole Pulse Ox Last 24 Hr 97.6 F-99.4 F 70-105 13-24 102-127/61-94 89-100 GENERAL: The patient is awake, alert, and fully oriented, in no acute distress. HEAD: Normal with no signs of trauma. EYES: PERRL, extraocular movements intact, sclera anicteric, conjunctiva clear. No ptosis. ENT: Ears normal, nares patent, oropharynx clear without exudates, moist mucous membranes. NECK: Trachea midline, full range of motion, supple. LUNGS: Breath sounds equal, clear to auscultation bilaterally, no wheezes, no crackles, no accessory muscle use. HEART: Regular rate and rhythm, S1, S2 without murmur, rub or gallop. ABDOMEN: Soft, nontender, nondistended, normoactive bowel sounds, no guarding, no rebound, no hepatosplenomegaly, no masses. EXTREMITIES: 2+ pulses, warm, well-perfused, no edema. NEUROLOGICAL: Cranial nerves II through XII grossly intact. Normal speech, gait not observed. PSYCH: Normal mood, normal affect. SKIN: Warm, dry, normal turgor, no rashes or lesions noted Laboratory Results - last 24 hr 06/21/18 06/21/18 06/21/18 11:46 16:59 22:07 WBC RBC Hgb Hct MCV MCH MCHC RDW Plt Count MPV POC Glucometer 159.90718 171.77855 143.82590 06/22/18 06/22/18 05:30 05:44 WBC 6.6 RBC 4.65 Hgb 13.5 Hct 40.8 MCV 87.8 MCH 29.0 MCHC 33.0 RDW 13.8 Plt Count 225 MPV 8.3 POC Glucometer [phone] Active Medications Generic Name Dose Route Start Last Admin Trade Name Freq PRN Reason Stop Dose Admin Acetaminophen 650 mg 06/19/18 10:57 06/21/18 21:56 Tylenol Oral Solution - PO 650 mg Q6H PRN Administration PAIN OR FEVER Chlorhexidine Gluconate 1 applic 06/19/18 22:00 06/21/18 21:58 Hibiclens For Decolonization - TP 1 applic HS [facility] Administration Docusate Sodium 100 mg 06/19/18 14:00 06/22/18 06:52 Colace - PO 100 mg TID [facility] Administration Heparin Sodium (Porcine) 5,000 unit 06/20/18 10:00 06/21/18 21:56 Heparin - SQ 5,000 unit BID [facility] Administration Insulin Aspart 1 vial 06/19/18 22:00 06/22/18 06:52 Novolog Vial Sliding Scale - SQ Not Given ACHS [facility] Protocol Ipratropium [place] 1 amp 06/19/18 12:00 06/21/18 21:30 Atrovent 0.02% Nebulizer - NEB 1 amp RQID [facility] Administration Ketorolac Tromethamine 30 mg 06/20/18 10:00 06/22/18 02:30 Toradol Injection - IVPUSH 06/25/18 09:59 Not Given Q8H-IV [facility] Lidocaine 1 patch 06/20/18 18:29 Lidoderm Patch - TP HS PRN PAIN Losartan Potassium 25 mg 06/20/18 10:00 06/21/18 11:59 Cozaar - PO 25 mg DAILY [facility] Administration Metformin HCl 1,000 mg 06/19/18 16:30 06/22/18 06:50 Glucophage - PO 1,000 mg BID@0700,1630 [facility] Administration Miscellaneous 1 each 06/20/18 22:00 06/21/18 22:17 Lidoderm Patch Removal MC Not Given DAILY@2200 [facility] Morphine Sulfate 4 mg 06/19/18 14:10 06/20/18 02:05 Morphine Sulfate IVPUSH 4 mg Q4H PRN Administration PAIN LEVEL 6-10 Mupirocin 1 applic 06/19/18 22:00 06/21/18 22:16 Bactroban Ointment (For Decolonization) - NS 06/24/18 21:59 Not Given BID [facility] Ondansetron HCl 4 mg 06/19/18 10:59 Zofran Injection IVPUSH Q6H PRN NAUSEA AND/OR VOMITING Oxycodone HCl 5 mg 06/19/18 10:47 06/21/18 21:57 Roxicodone - PO 5 mg Q4H PRN Administration PAIN LEVEL 1-5 Oxycodone HCl 10 mg 06/19/18 10:51 06/21/18 07:44 Roxicodone - PO 10 mg Q4H PRN Administration PAIN LEVEL 6-10 Senna 2 tab 06/19/18 22:00 06/21/18 22:00 Senna - PO 2 tab HS [facility] Administration Sitagliptin Phosphate 50 mg 06/19/18 16:30 06/22/18 06:50 Januvia - PO 50 mg BID@0700,1630 [facility] Administration ASSESSMENT/PLAN: Rosas Jasmine is a 52yo man with a PMH of DM and incidentally found right lung lesion who was admitted to the ICU s/p bronchoscopy, R VATS, pleural biopsy, RUL wedge resection. He is now POD #3 and recovering well postoperatively. He is ready for discharge home today. Neuro: - s/p intercostal nerve block in OR - Pain control with scheduled toradol, PRN oxycodone or acetaminophen - HOB to 45 degrees per surgical team CV: - Home losartan - Cardiac monitoring Pulm: - POD #3 s/p R VATS, pleural bx, RUL bx - Chest tube removed yesterday - Atrovent. Duonebs Q6hr - IS 10x per hour - No desats overnight Heme: - Postoperative leukocytosis resolved. Hgb stable. - SQH GI: - Low sodium diet - Doc/senna. PRN zofran Renal: - Voiding spontaneously - UOP appropriate ID: - No issues Endo: - h/o DM - Continue home metformin, sitagliptin, ISS Musc: - OOB as tolerated - Wound care per CT surgery PPx: - SCDs, SQH - No indication for GI ppx FEN: - Low sodium diet - SLIV - Replete lytes PRN Dispo: - Discharge home per thoracic surgery and primary. Seen and discussed with Dr Umanzor. April Larkin PGY1 Visit type - Emergency Visit Emergency Visit: No - New Patient This patient is new to me today: No - Critical Care Critical Care patient: Yes Total Critical Care Time (in minutes): 35 Critical Care Statement: The care of this patient involved high complexity decision making to prevent further life threatening deterioration of the patient 's condition and/or to evaluate & treat vital organ system(s) failure or risk of failure.
[2018-06-22] MEDS: IPRATROPIUM BR 0.02% 0.5 MG/2.5 ML VIAL.NEB. NEB SCH ×2 (08:32→11:44)
[2018-06-22] MEDS ORDERED: ACETAMINOPHEN 650 MG/20.3 ML ORAL SOLUTION (CUPS) PO PRN (08:41)
[2018-06-22] MEDS ORDERED: oxyCODONE HCL 5 MG TABLET PO PRN (08:41)
--- NOTE | 2018-06-22 08:41 | PN ---
Progress Note (short form) - Note Progress Note: 52yo M s/p Right VATS and wedge resection, seen and examined at bedside. Pt states that he is feeling well. Denies n/v, fever, chills. Pt states that he is ambulating well and breathing well. Last Vital Signs Temp Pulse Resp BP Pulse Ox 97.6 F 86 14 127/93 100 06/21/18 22:00 06/22/18 06:00 06/22/18 06:00 06/22/18 06:00 06/21/18 21:00 CBC, BMP 06/22/18 05:30 06/20/18 05:30 PE: Gen: A&O x 3 Resp: breathing comfortably, no accessory muscle use Chest: incisions clean with no erythema or discharge. Ext: no edema Problem List - Problems (1) Interstitial lung disease Assessment/Plan: Plan - pt appears to be doing well, is cleared from thoracic surgery for discharge home. -continue incentive spirometry -follow up with Dr. Calderon in clinic as outpatient Code(s): J84.9 - INTERSTITIAL PULMONARY DISEASE, UNSPECIFIED
[2018-06-22] MEDS: LOSARTAN POTASSIUM 25 MG TABLET PO SCH (09:23)
[2018-06-22] MEDS: HEPARIN NA (PORCINE) 5,000 UNITS/ML 1ML VIAL SQ SCH (09:25)
[2018-06-22 10:19] VITALS: BP 121/73; PULSE 102; TEMP 99.4
--- NOTE | 2018-06-22 11:38 | PN ---
Teaching Attending Note Name of Resident: April Larkin ATTENDING PHYSICIAN STATEMENT I saw and evaluated the patient. I reviewed the resident's note and discussed the case with the resident. I agree with the resident's findings and plan as documented. SUBJECTIVE: Pt seen and examined in the ICU. Ambulating, denies pain or shortness of breath. OBJECTIVE: Vital Signs Period Temp Pulse Resp BP Sys/Otoole Pulse Ox Last 24 Hr 97.6 F-99.4 F 70-102 13-24 102-127/61-93 89-100 Intake & Output 06/19/18 06/20/18 06/21/18 06/22/18 23:59 23:59 23:59 23:59 Intake Total 2200 2550 440 400 Output Total 1240 3000 530 Balance 960 -450 -90 400 Weight 87.543 kg Gen: NAD at rest Heart: RRR Lung: decreased breath sounds at the bases Abd: soft, nontender Ext: no edema CBC, BMP 06/22/18 05:30 06/20/18 05:30 Active Medications Acetaminophen (Tylenol Oral Solution -) 650 mg PO Q6H PRN PRN Reason: PAIN LEVEL 1-5 Chlorhexidine Gluconate (Hibiclens For Decolonization -) 1 applic TP HS [facility] Last Admin: 06/21/18 21:58 Dose: 1 applic Docusate Sodium (Colace -) 100 mg PO TID [facility] Last Admin: 06/22/18 06:52 Dose: 100 mg Heparin Sodium (Porcine) (Heparin -) 5,000 unit SQ BID [facility] Last Admin: 06/22/18 09:25 Dose: 5,000 unit Insulin Aspart (Novolog Vial Sliding Scale -) 1 vial SQ ACHS [facility]; Protocol Last Admin: 06/22/18 06:52 Dose: Not Given Ipratropium [place] (Atrovent 0.02% Nebulizer -) 1 amp NEB RQID [facility] Last Admin: 06/22/18 08:32 Dose: 1 amp Ketorolac Tromethamine (Toradol Injection -) 30 mg IVPUSH Q8H-IV [facility] Stop: 06/25/18 09:59 Last Admin: 06/22/18 09:24 Dose: 30 mg Lidocaine (Lidoderm Patch -) 1 patch TP HS PRN PRN Reason: PAIN Losartan Potassium (Cozaar -) 25 mg PO DAILY [facility] Last Admin: 06/22/18 09:23 Dose: 25 mg Metformin HCl (Glucophage -) 1,000 mg PO BID@0700,1630 [facility] Last Admin: 06/22/18 06:50 Dose: 1,000 mg Miscellaneous (Lidoderm Patch Removal) 1 each MC DAILY@2200 [facility] Last Admin: 06/21/18 22:17 Dose: Not Given Mupirocin (Bactroban Ointment (For Decolonization) -) 1 applic NS BID [facility] Stop: 06/24/18 21:59 Last Admin: 06/21/18 22:16 Dose: Not Given Ondansetron HCl (Zofran Injection) 4 mg IVPUSH Q6H PRN PRN Reason: NAUSEA AND/OR VOMITING Oxycodone HCl (Roxicodone -) 5 mg PO Q4H PRN PRN Reason: PAIN LEVEL 6-10 Senna (Senna -) 2 tab PO [facility] Last Admin: 06/21/18 22:00 Dose: 2 tab Sitagliptin Phosphate (Januvia -) 50 mg PO BID@0700,1630 [facility] Last Admin: 06/22/18 06:50 Dose: 50 mg ASSESSMENT AND PLAN: Interstitial Lung Disease likely Sarcoidosis s/p R VATS/RUL wedge resection/LN biopsy/Pleural biopsy DM - f/u pathology - pain control - incentive spirometry - glucose control - DVT prophylaxis - d/c home
--- NOTE | 2018-06-23 10:46 | PATH ---
Surgical Pathology Report Patient Name: MAMIE ERICKSON [facility]. Rec. 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 Specimen(s) Received A: PLEURAL BIOPSY B: RIGHT LEVEL 4 LYMPH NODE BX C: RIGHT LEVEL 4 LYMPH NODE BX D: RIGHT UPPER LOB WEDGE Clinical History Interstitial pulmonary disease Intraoperative Consult Diagnosis A. Pleural biopsy (FS): Negative for malignancy. Granulomatous inflammation. B. Right level IV lymph node Bx (FS): Negative for malignancy. Granulomatous inflammation. Dr. Fernando, 06/19/18. Final Diagnosis A. PLEURAL BIOPSY (FS): PLEURAL TISSUE WITH NONNECROTIZING GRANULOMATOUS INFLAMMATION. B. RIGHT LEVEL IV LYMPH NODE, BX (FS): NONNECROTIZING GRANULOMATOUS INFLAMMATION. C. RIGHT LEVEL IV LYMPH NODE, BIOPSY: NONNECROTIZING GRANULOMATOUS INFLAMMATION. D. RIGHT UPPER LOBE, WEDGE BIOPSY: LUNG WITH NONNECROTIZING GRANULOMATOUS INFLAMMATION. COMMENT: Sections show nonnecrotizing granulomatous inflammation involving pleura, lung, and lymph nodes. Special stains (AFB and GMS on blocks C1, D2, and D5) are negative for AFB and fungus. No histologic evidence of necrotizing vasculitis. The differential diagnosis is broad, and includes infectious and noninfectious granulomatous diseases. Among the noninfectious granulomatous diseases, sarcoidosis is favored if in a compatible clinical setting. Correlation with clinical, microbiology culture studies, serology, and radiology recommended. Electronically Signed Adelaide Denney M.D. Gross Description A. Received fresh for immediate intraoperative consultation labeled "pleural biopsy" is an aggregate of pink-bennett soft tissue measuring 1 x 0.5 x 0.4 cm. Touch preparation was performed. The specimen is submitted for frozen section analysis in one cassette as follows: FSA1. B. Received fresh for immediate intraoperative consultation labeled "right level IV lymph node BX" is pink-bennett soft tissue measuring 1.2 x 0.5 x 0.2 cm. The specimen is submitted for frozen section analysis in one cassette as follows: FSB1. C. Received in formalin labeled "right level IV lymph node biopsy" is an irregular fragment of pink-bennett soft tissue measuring 0.7 x 0.2 x 0.2 cm. The entire specimen is submitted in one cassette. D. Received in formalin labeled "right upper lobe wedge" is a lung wedge with stapled margin of resection which measures 6 x 2.5 x 1 cm. Surgical margin is inked in blue. The pleural surface is inked in black. Surface and cut section shows a nodular parenchyma. No discrete mass identified. Entire specimen is submitted in 5 cassettes as follows: 1- shaved margin of resection, 2-5: Remainder of specimen. MLSZ/06/19/2018 [place]/06/19/2018
== END 2018-06-22 12:15 | disposition home or self-care (01) | DRG 167 ==
LOC: JASUSAT 05:02 → JSAMEDAYSX 10:52 → JICU 13:31
PROVIDERS: ADMIT Internal Medicine Infectious Disease; ATTEND Internal Medicine Infectious Disease
PROC: 0BBC4ZX Excision of Right Upper Lung Lobe, Percutaneous Endoscopic Approach, Diagnostic (ICD-10-PCS; 2018-06-19)
PROC: 0W9940Z Drainage of Right Pleural Cavity with Drainage Device, Percutaneous Endoscopic Approach (ICD-10-PCS; 2018-06-19)
PROC: 0B9N4ZX Drainage of Right Pleura, Percutaneous Endoscopic Approach, Diagnostic (ICD-10-PCS; 2018-06-19)
PROC: 0BJ08ZZ Inspection of Tracheobronchial Tree, Via Natural or Artificial Opening Endoscopic (ICD-10-PCS; principal; 2018-06-19 07:30)
PROC: 07B74ZX Excision of Thorax Lymphatic, Percutaneous Endoscopic Approach, Diagnostic (ICD-10-PCS; 2018-06-19 07:30)
PROC: 0BPKX0Z Removal of Drainage Device from Right Lung, External Approach (ICD-10-PCS; 2018-06-21)
DX: D86.9 Sarcoidosis, unspecified (principal); J84.9 Interstitial pulmonary disease, unspecified; I97.191 Other postprocedural cardiac functional disturbances following other surgery; E11.9 Type 2 diabetes mellitus without complications; I10 Essential (primary) hypertension; Z87.891 Personal history of nicotine dependence; R59.0 Localized enlarged lymph nodes; R00.0 Tachycardia, unspecified; D72.829 Elevated white blood cell count, unspecified
CPT/HCPCS: 36415; 71045-TC-FY; 80048; 82962; 83735; 84100; 85027; 86850; 86900; 86901; 87070; 87075; 87102; 87116; 87205; 87206; 87210; 88108; 88305-TC; 88307-TC; 88313-TC; 88331-TC; 90688; 94640; 94760; 94761; 97116-GP; 97161-GP; G0008; J0131; J1644

== ENCOUNTER 2024-08-31 13:53 | Inpatient (IN) | payer OTHER ==
[2024-08-31 13:59] VITALS: BMI 31.3
[2024-08-31] MEDS ORDERED: KETOROLAC TROMETHAMINE 30 MG/1 ML VIAL ONE ×2 (14:50→21:35)
[2024-08-31] MEDS: KETOROLAC TROMETHAMINE 30 MG/1 ML VIAL IVPUSH ONE ×2 (15:20→21:43)
[2024-08-31 15:27] LABS: BASO % 0.4 % (0-2.0); EOS % 0.5 % (0-4.5); HEMATOCRIT 44.4 % (35.4-49); HEMOGLOBIN 14.8 GM/dL (11.7-16.9); LYMPH % 8.4 % (8-40); MCH 29.4 pg (25.7-33.7); MCHC 33.4 g/dl (32.0-35.9); MEAN PLT VOLUME 7.6 fl (7.5-11.1); MONO % 7.6 % (3.8-10.2); NEUT % 83.1 % (42.8-82.8); PLATELET COUNT 321 10^3/uL (134-434); RBC 5.05 M/mm3 (4.00-5.60); RDW 14.5 % (11.9-15.9); WHITE BLOOD COUNT 14.9 K/mm3 (4.0-10.0)
[2024-08-31 15:42] LABS: POTASSIUM 4.5 mmol/L (3.5-5.1)
[2024-08-31] MEDS: VANCOMYCIN PREMIX 1.75 GM 1,750 MG/350 ML PIGGYBACK IVPB ONE (15:43)
[2024-08-31 15:44] LABS: ALBUMIN 3.6 g/dl (3.4-5.0); BLOOD UREA NITROGEN 17.5 mg/dL (7-18); CALCIUM 9.7 mg/dL (8.5-10.1)
[2024-08-31 15:47] LABS: CREATININE 1.1 mg/dL (0.55-1.3)
[2024-08-31 15:49] LABS: BILIRUBIN,TOTAL 0.5 mg/dL (0.2-1)
[2024-08-31 16:12] LABS: ERYTHROCYTE SEDIMENTATION RATE 73 mm/hr (0-20)
[2024-08-31] MEDS: LIDOCAINE HCL 1%, 10 MG/ML (50 mL VIAL) SQ ONE (16:55)
[2024-08-31] MEDS ORDERED: CEFEPIME HCL/D5W 1 GM/50 ML BAG IVPB ONE (21:34)
[2024-08-31] MEDS: CEFEPIME HCL 1 GM VIAL (RESTRICTED TO ID) IVPB ONE (21:35)
[2024-09-01] MEDS: ATORVASTATIN CA 10 MG TABLET (FP) PO ONE (01:52)
[2024-09-01] MEDS: PARoxetine HCL 20 MG TABLET PO ONE (01:52)
[2024-09-01] MEDS: AZTREONAM 2 GM in DEXTROSE 5%-WATER 100 ML IVPB SCH ×2 (03:30→16:55)
[2024-09-01] MEDS ORDERED: ACETAMINOPHEN 1000 MG/100 ML BAG IVPB PRN (05:29)
[2024-09-01] MEDS ORDERED: INSULIN ASPART SLIDING SCALE (NOVOLOG) 1 VIAL SQ SCH (07:00)
[2024-09-01] MEDS: ACETAMINOPHEN 325 MG TABLET (FP) PO PRN (07:07)
[2024-09-01] MEDS ORDERED: AZTREONAM 2 GM VIAL (RESTRICTED TO ID) ONE (07:20)
[2024-09-01] MEDS: FLU VACCINE (FLULAVAL) PF 45 MCG/0.5 ML SYRINGE 2024-2025 IM ONE (08:13)
[2024-09-01] MEDS: INSULIN ASPART SLIDING SCALE (NOVOLOG) 1 VIAL SQ SCH (08:55)
[2024-09-01 09:28] LABS: BASO % 0.5 % (0-2.0); EOS % 0.9 % (0-4.5); HEMOGLOBIN 14.7 GM/dL (11.7-16.9); LYMPH % 10.7 % (8-40); MCH 29.4 pg (25.7-33.7); MCHC 33.3 g/dl (32.0-35.9); MEAN CELL VOLUME 88.3 fl (80-96); MEAN PLT VOLUME 7.8 fl (7.5-11.1); MONO % 6.8 % (3.8-10.2); NEUT % 81.1 % (42.8-82.8); PLATELET COUNT 329 10^3/uL (134-434); RBC 4.99 M/mm3 (4.00-5.60); RDW 14.3 % (11.9-15.9)
[2024-09-01] MEDS: LOSARTAN POTASSIUM 25 MG TABLET PO SCH (09:32)
[2024-09-01] MEDS: ENOXAPARIN NA (PORCINE) 40 MG/0.4 ML DISP.SYRIN SQ SCH (09:32)
[2024-09-01 09:48] LABS: POTASSIUM 4.5 mmol/L (3.5-5.1)
[2024-09-01 09:59] LABS: ALBUMIN 3.4 g/dl (3.4-5.0); CALCIUM 9.4 mg/dL (8.5-10.1); MAGNESIUM 2.3 mg/dL (1.8-2.4)
[2024-09-01 10:01] LABS: PHOSPHOROUS 3.5 mg/dL (2.5-4.9)
[2024-09-01 10:04] LABS: BILIRUBIN,TOTAL 0.8 mg/dL (0.2-1); TOT PROT 7.7 g/dl (6.4-8.2)
[2024-09-01] MEDS ORDERED: ACETAMINOPHEN 325 MG TABLET (FP) PO PRN (10:11)
[2024-09-01] MEDS: SODIUM CHLORIDE 1,000 ML IV SCH (10:47)
[2024-09-01] MEDS: BREXPIPRAZOLE (REXULTI) 1 MG TABLET (RESTRICTED TO PSYCIATRY) PO SCH (11:28)
[2024-09-01] MEDS: EMPAGLIFLOZIN (JARDIANCE) 25 MG TABLET PO SCH (12:16)
[2024-09-01] MEDS ORDERED: PROMETHAZINE HCL 25 MG/1 ML VIAL IVPB PRN ×2 (13:55→18:06)
[2024-09-01] MEDS ORDERED: ONDANSETRON 4 MG/2 ML VIAL IVPUSH PRN ×2 (13:55→18:06)
[2024-09-01] MEDS: ACETAMINOPHEN 500 MG TABLET (FP) PO PRN (14:17)
[2024-09-01] MEDS ORDERED: PROPOFOL 20 ML ONE (16:26)
[2024-09-01] MEDS ORDERED: LIDOCAINE HCL/PF 2% SDV 5ML VIAL ONE (16:27)
[2024-09-01] MEDS ORDERED: MIDAZOLAM HCL 2 MG/2 ML SINGLE DOSE VIAL ONE (17:04)
[2024-09-01] MEDS: AZTREONAM 1 GM VIAL (RESTRICTED TO ID) IVPB ONE (17:20)
[2024-09-01] MEDS ORDERED: ONDANSETRON 4 MG/2 ML VIAL ONE (17:32)
[2024-09-01] MEDS: VANCOMYCIN/WATER 1250 MG 1,250 MG/250 ML BAG IVPB SCH (17:52)
[2024-09-01] MEDS: AZTREONAM 1 GM in DEXTROSE 5%-WATER - 50 ML IVPB SCH (17:53)
[2024-09-01] MEDS: LACTATED RINGERS SOLUTION 1,000 ML IV SCH ×2 (18:19→19:32)
[2024-09-01] MEDS: PARoxetine HCL 20 MG TABLET PO SCH (21:05)
[2024-09-01] MEDS: ATORVASTATIN CA 10 MG TABLET (FP) PO SCH (21:06)
[2024-09-01] MEDS: oxyCODONE HCL 5 MG TABLET PO PRN (21:06)
[2024-09-01] MEDS ORDERED: ATORVASTATIN CA 10 MG TABLET (FP) PO SCH (22:00)
[2024-09-01] MEDS ORDERED: PARoxetine HCL 20 MG TABLET PO SCH (22:00)
[2024-09-02] MEDS: AZTREONAM 1 GM in DEXTROSE 5%-WATER - 50 ML IVPB SCH (01:46)
[2024-09-02] MEDS: VANCOMYCIN/WATER 1250 MG 1,250 MG/250 ML BAG IVPB SCH (05:08)
[2024-09-02] MEDS ORDERED: glipiZIDE 5 MG TABLET (FP) PO SCH (07:00)
[2024-09-02] MEDS: EMPAGLIFLOZIN (JARDIANCE) 25 MG TABLET PO SCH (07:29)
[2024-09-02] MEDS: INSULIN ASPART SLIDING SCALE (NOVOLOG) 1 VIAL SQ SCH (07:29)
[2024-09-02] MEDS: glipiZIDE 5 MG TABLET (FP) PO SCH (07:30)
[2024-09-02] MEDS: LOSARTAN POTASSIUM 25 MG TABLET PO SCH (09:36)
[2024-09-02] MEDS: ENOXAPARIN NA (PORCINE) 40 MG/0.4 ML DISP.SYRIN SQ SCH (09:36)
[2024-09-02] MEDS: BREXPIPRAZOLE (REXULTI) 1 MG TABLET (RESTRICTED TO PSYCIATRY) PO SCH (09:37)
[2024-09-02 10:08] LABS: BASO % 0.3 % (0-2.0); EOS % 0.5 % (0-4.5); HEMATOCRIT 45.4 % (35.4-49); HEMOGLOBIN 15.2 GM/dL (11.7-16.9); LYMPH % 11.4 % (8-40); MCH 29.5 pg (25.7-33.7); MCHC 33.5 g/dl (32.0-35.9); MEAN PLT VOLUME 7.8 fl (7.5-11.1); MONO % 6.9 % (3.8-10.2); NEUT % 80.9 % (42.8-82.8); PLATELET COUNT 380 10^3/uL (134-434); RBC 5.16 M/mm3 (4.00-5.60); RDW 14.4 % (11.9-15.9); WHITE BLOOD COUNT 13.6 K/mm3 (4.0-10.0)
[2024-09-02 10:26] LABS: POTASSIUM 4.7 mmol/L (3.5-5.1)
[2024-09-02 10:28] LABS: CALCIUM 9.4 mg/dL (8.5-10.1)
[2024-09-02 10:29] LABS: BLOOD UREA NITROGEN 17.4 mg/dL (7-18)
[2024-09-02 10:32] LABS: CREATININE 0.9 mg/dL (0.55-1.3)
[2024-09-02] MEDS: ACETAMINOPHEN 500 MG TABLET (FP) PO PRN (16:20)
[2024-09-02 23:04] VITALS: RESP 18
[2024-09-03 13:33] LABS: BASO % 0.4 % (0-2.0); HEMATOCRIT 46.6 % (35.4-49); HEMOGLOBIN 15.3 GM/dL (11.7-16.9); LYMPH % 12.6 % (8-40); MCH 29.1 pg (25.7-33.7); MCHC 32.9 g/dl (32.0-35.9); MEAN CELL VOLUME 88.4 fl (80-96); MEAN PLT VOLUME 7.7 fl (7.5-11.1); MONO % 6.7 % (3.8-10.2); NEUT % 79.3 % (42.8-82.8); PLATELET COUNT 380 10^3/uL (134-434); RBC 5.27 M/mm3 (4.00-5.60); RDW 14.1 % (11.9-15.9); WHITE BLOOD COUNT 12.4 K/mm3 (4.0-10.0)
[2024-09-03 13:53] LABS: POTASSIUM 4.4 mmol/L (3.5-5.1)
[2024-09-03 13:55] LABS: CALCIUM 9.9 mg/dL (8.5-10.1)
[2024-09-03 13:56] LABS: ALBUMIN 3.4 g/dl (3.4-5.0); BLOOD UREA NITROGEN 22.4 mg/dL (7-18); MAGNESIUM 2.2 mg/dL (1.8-2.4)
[2024-09-03 13:59] LABS: CREATININE 0.8 mg/dL (0.55-1.3)
[2024-09-03 14:00] LABS: BILIRUBIN,TOTAL 0.5 mg/dL (0.2-1)
[2024-09-04 09:33] LABS: POTASSIUM 4.3 mmol/L (3.5-5.1)
[2024-09-04 09:43] LABS: ALBUMIN 3.2 g/dl (3.4-5.0)
[2024-09-04 09:45] LABS: BLOOD UREA NITROGEN 20.8 mg/dL (7-18); CALCIUM 9.2 mg/dL (8.5-10.1)
[2024-09-04 09:48] LABS: BILIRUBIN,TOTAL 0.4 mg/dL (0.2-1); MAGNESIUM 2.2 mg/dL (1.8-2.4); TOT PROT 7.6 g/dl (6.4-8.2)
[2024-09-04 10:10] LABS: CREATININE 0.8 mg/dL (0.55-1.3)
[2024-09-04] MEDS: CEFAZOLIN 2 GM/D5W 2 GM/50 ML ML IVPB ONE (11:41)
[2024-09-04 15:51] VITALS: BP 138/81; PULSE 79; TEMP 98.2
== END 2024-09-04 17:57 | disposition home or self-care (01) | DRG 383 ==
LOC: JER 13:53 → JERBED 18:41 → J8W 09-01 00:05
PROVIDERS: ADMIT Internal Medicine; ATTEND Nurse Practitioner Family
PROC: 0Y9C0ZZ Drainage of Right Upper Leg, Open Approach (ICD-10-PCS; principal; 2024-08-31)
PROC: 0Y9C0ZZ Drainage of Right Upper Leg, Open Approach (ICD-10-PCS; 2024-08-31)
DX: L02.415 Cutaneous abscess of right lower limb (principal); I10 Essential (primary) hypertension; E78.5 Hyperlipidemia, unspecified; E11.9 Type 2 diabetes mellitus without complications; D72.829 Elevated white blood cell count, unspecified; L03.115 Cellulitis of right lower limb; R91.1 Solitary pulmonary nodule; M79.81 Nontraumatic hematoma of soft tissue; J84.9 Interstitial pulmonary disease, unspecified; N43.3 Hydrocele, unspecified; F41.8 Other specified anxiety disorders; Z22.321 Carrier or suspected carrier of Methicillin susceptible Staphylococcus aureus; Z88.0 Allergy status to penicillin
CPT/HCPCS: 36415; 73562-TC-RT-FY; 73701-TC-RT; 80048; 80053; 82962; 83036; 83735; 84100; 85025; 85651; 86140; 87040; 87070; 87081; 87186; 87205; 93005; 93010; 94760; 97116-GP; 97161-GP; 99285-25; J3370; Q9967